=== PATIENT | female | born 1930 | race Caucasian/White ===

== ENCOUNTER 2016-09-02 16:03 | Emergency (ER) | payer MEDICARE, BC ==
[2006-11-06 12:54] VITALS: BP 122/62
[~2016-09-02] VITALS: Ht 167.6 cm; Wt 68.2 kg
[~2016-09-02 16:03] MED LIST: AMLOPIDINE PO; ASPIRIN 32325 MG/TAB PO; AVANDIA4 MG PO; AVAPRO300 M1 PO; AVAPRO300 MG PO; CALCIUM 600-D 61 TAB PO; CALCIUM WITH D1 CTB PO; CITRACAL + D CA1 TAB PO; DARVOCET-N-101 UDTAB PO; EPA/GLA1 SGL PO; FOLIC ACID 11 MG/TA1 PO; GLUCOPHAGE500 MG PO; GLUCOTROL 5M5 MG/TAB PO; GLUCOTROL XL5 MG/TAB PO; GLUCOTROL5 MG PO; IMDUR 30MG30 MG/TAB PO; JANUVIA 100MG100 MG PO; JANUVIA100 MG PO; JANUVIA50 MG PO; LASIX 40MG TABL40 MG PO; LIPITOR 80MG80 MG PO; LOPRESSOR 225 MG/TAB PO; LOPRESSOR 550 MG/TAB PO; MAXZIDE 50 MG-71 TAB PO; MULTIVITAMIN FO1 CAP PO; NITROSTAT0.4 MG/TAB SL; NORCO 325 MG-51 TAB PO; OMEGA 31000 MG PO; PLAVIX 75MG TAB75 MG PO; PRILOSEC 20MG20 MG PO; TESSALON P100 MG/CAP PO; VITAMIN C500 MG PO; VITAMIN D32000 IU PO; VITAMIN D5000 IU PO; WOMEN'S DAILY F1 TAB PO; ZYRTEC ALLERGY10 MG PO; maxide
[2016-09-02 16:31] LABS: BASO % 0.5 % (0.0-2.0); EOS # 0.1 (0.0-0.7); EOS % 1.1 % (0-4.0); GRAN % 71.1 % (42.2-75.2); LYMPH # 0.8 (1.2-3.4); LYMPH % 14.4 % (20.0-51.0); MEAN CELL VOLUME 88 fl (80.0-100.0); MEAN CORPUSCULAR HGB CONC 34 g/dl (33.0-37.0); MEAN PLATELET VOLUME 10.2 fl (7.4-10.4); MONO # 0.7 (0.1-0.6); MONO % 12.7 % (1.7-9.3); PLATELET COUNT 154 K/mm3 (130-400); RED BLOOD COUNT 3.96 M/mm3 (4.10-5.30); REDCELL DISTRIBUTION WIDTH-CV 12.8 % (11.5-14.5); WHITE BLOOD COUNT 5.6 K/mm3 (4.8-10.8)
[2016-09-02 16:32] LABS: HEMATOCRIT 34.7 % (37.0-47.0); HEMOGLOBIN 11.8 g/dl (12.5-16.0); MEAN CORPUSCULAR HEMOGLOBIN 30 pg (27.0-31.0)
[2016-09-02 16:40] LABS: ADJUSTED CALCIUM 9.9 mg/dL (8.4-10.2); ALBUMIN 4.3 gm/dL (3.5-5.0); BILIRUBIN,TOTAL 0.7 mg/dL (0.0-1.0); CALCIUM 10.1 mg/dL (8.4-10.2); CREATININE, serum 2.28 mg/dL (0.52-1.25); POTASSIUM 3.5 mmol/L (3.4-5.0)
[2016-09-02 16:44] LABS: PARTIAL THROMBOPLASTIN TIME 33.3 SECONDS (26.0-37.0)
[2016-09-02 16:51] LABS: TROPONIN-I 0.022 ng/mL (0.000-0.034)
[2016-09-02 17:30] VITALS: BP 135/57; PULSE 93
== END 2016-09-02 17:30 | disposition home or self-care (01) ==
LOC: COL.ER 16:03
PROVIDERS: Family Medicine
DX: R07.9 Chest pain, unspecified (principal); E11.22 Type 2 diabetes mellitus with diabetic chronic kidney disease; I12.0 Hypertensive chronic kidney disease with stage 5 chronic kidney disease or end stage renal disease; N18.6 End stage renal disease; Z99.2 Dependence on renal dialysis
CPT/HCPCS: J7040

== ENCOUNTER 2017-06-21 09:50 | Emergency (ER) | payer MEDICARE, BC ==
[2006-11-06 12:54] VITALS: BP 122/62
[~2017-06-21] VITALS: Ht 167.6 cm; Wt 68.2 kg
[~2017-06-21 09:50] MED LIST changes: +LASIX 80MG TABL80 MG PO; +LIPITOR 40MG TA40 MG PO; +THERAGRAN TAB1 UDTAB PO
[2017-06-21 10:10] VITALS: TEMP 98.1
[2017-06-21 11:22] LABS: BASO % 0.3 % (0.0-2.0); EOS # 0.1 (0.0-0.7); EOS % 0.9 % (0-4.0); GRAN # 7.4 (1.4-6.5); GRAN % 76.5 % (42.2-75.2); LYMPH # 1.7 (1.2-3.4); MEAN CELL VOLUME 88 fl (80.0-100.0); MEAN CORPUSCULAR HGB CONC 33 g/dl (33.0-37.0); MEAN PLATELET VOLUME 10.8 fl (7.4-10.4); MONO # 0.5 (0.1-0.6); PLATELET COUNT 168 K/mm3 (130-400); RED BLOOD COUNT 3.51 M/mm3 (4.10-5.30); WHITE BLOOD COUNT 9.7 K/mm3 (4.8-10.8)
[2017-06-21 11:23] LABS: HEMATOCRIT 30.9 % (37.0-47.0); HEMOGLOBIN 10.3 g/dl (12.5-16.0); MEAN CORPUSCULAR HEMOGLOBIN 29 pg (27.0-31.0)
[2017-06-21 11:32] LABS: ADJUSTED CALCIUM 9.4 mg/dL (8.4-10.2); BILIRUBIN,TOTAL 0.5 mg/dL (0.0-1.0); CALCIUM 9.4 mg/dL (8.4-10.2); MAGNESIUM 1.4 mg/dL (1.6-2.3); PHOSPHOROUS 3.3 mg/dL (2.5-4.5); TOTAL PROTEIN 7.2 gm/dL (6.4-8.2)
[2017-06-21 11:36] LABS: CREATININE, serum 3.95 mg/dL (0.52-1.25); POTASSIUM 2.8 mmol/L (3.4-5.0)
[2017-06-21 12:01] LABS: INFLUENZA A NEGATIVE; INFLUENZA B NEGATIVE
[2017-06-21 14:34] VITALS: BP 119/56; PULSE 81
== END 2017-06-21 14:50 | disposition home or self-care (01) ==
LOC: COL.ER 09:50
PROVIDERS: Emergency Medicine
DX: E87.6 Hypokalemia (principal); I13.2 Hypertensive heart and chronic kidney disease with heart failure and with stage 5 chronic kidney disease, or end stage renal disease; E11.22 Type 2 diabetes mellitus with diabetic chronic kidney disease; I50.9 Heart failure, unspecified; N18.6 End stage renal disease; D64.9 Anemia, unspecified; Z99.2 Dependence on renal dialysis; Z95.5 Presence of coronary angioplasty implant and graft; Z79.82 Long term (current) use of aspirin
CPT/HCPCS: J3480

== ENCOUNTER 2017-07-07 15:03 | Observation (INO) | payer MEDICARE, BC ==
[~2017-07-07] VITALS: Ht 165.1 cm; Wt 70.1 kg
[2017-07-07] MEDS ORDERED: LOPRESSOR 225 MG/TAB PO (15:16)
[2017-07-07 15:39] LABS: BASO % 0.7 % (0.0-2.0); EOS # 0.1 (0.0-0.7); EOS % 1.9 % (0-4.0); GRAN # 3.7 (1.4-6.5); LYMPH # 1.5 (1.2-3.4); LYMPH % 25.8 % (20.0-51.0); MEAN CELL VOLUME 92 fl (80.0-100.0); MEAN CORPUSCULAR HGB CONC 33 g/dl (33.0-37.0); MEAN PLATELET VOLUME 10.9 fl (7.4-10.4); MONO # 0.5 (0.1-0.6); MONO % 8.4 % (1.7-9.3); PLATELET COUNT 124 K/mm3 (130-400); RED BLOOD COUNT 3.51 M/mm3 (4.10-5.30); REDCELL DISTRIBUTION WIDTH-CV 13.8 % (11.5-14.5)
[2017-07-07 15:40] LABS: HEMATOCRIT 32.4 % (37.0-47.0); HEMOGLOBIN 10.6 g/dl (12.5-16.0); MEAN CORPUSCULAR HEMOGLOBIN 30 pg (27.0-31.0)
[2017-07-07 15:49] LABS: ALBUMIN 4.2 gm/dL (3.5-5.0); BILIRUBIN,TOTAL 0.5 mg/dL (0.0-1.0); CALCIUM 9.5 mg/dL (8.4-10.2); CREATININE, serum 1.66 mg/dL (0.52-1.25); POTASSIUM 3.5 mmol/L (3.4-5.0); PROTHROMBIN TIME 11.7 SECONDS (9.7-12.8); TOTAL PROTEIN 7.2 gm/dL (6.4-8.2)
[2017-07-07 15:51] LABS: PARTIAL THROMBOPLASTIN TIME 37.7 SECONDS (26.0-37.0)
[2017-07-07 16:01] LABS: TROPONIN-I 0.023 ng/mL (0.000-0.034)
[2017-07-07 19:20] VITALS: BP 122/43; PULSE 81; TEMP 97.8
[2017-07-07 20:21] VITALS: BP 122/43; PULSE 81; TEMP 97.8
[2017-07-07 23:19] VITALS: BP 92/38; PULSE 64; TEMP 97.3
[2017-07-08 03:41] VITALS: BP 100/39; PULSE 65; TEMP 97.4
[2017-07-08 07:46] VITALS: BP 110/46; PULSE 75; TEMP 97.8
[2017-07-08 07:48] LABS: BASO % 0.5 % (0.0-2.0); EOS # 0.2 (0.0-0.7); EOS % 2.5 % (0-4.0); GRAN # 3.3 (1.4-6.5); GRAN % 52.8 % (42.2-75.2); LYMPH % 30.9 % (20.0-51.0); MEAN CELL VOLUME 94 fl (80.0-100.0); MEAN CORPUSCULAR HGB CONC 32 g/dl (33.0-37.0); MEAN PLATELET VOLUME 11.5 fl (7.4-10.4); MONO # 0.8 (0.1-0.6); PLATELET COUNT 127 K/mm3 (130-400); RED BLOOD COUNT 3.06 M/mm3 (4.10-5.30); REDCELL DISTRIBUTION WIDTH-CV 14.2 % (11.5-14.5)
[2017-07-08 07:58] LABS: CALCIUM 9.1 mg/dL (8.4-10.2); CREATININE, serum 2.3 mg/dL (0.52-1.25); POTASSIUM 3.5 mmol/L (3.4-5.0)
[2017-07-08 08:03] LABS: HEMATOCRIT 28.8 % (37.0-47.0); HEMOGLOBIN 9.3 g/dl (12.5-16.0); MEAN CORPUSCULAR HEMOGLOBIN 30 pg (27.0-31.0)
[2017-07-08] MEDS ORDERED: ASPIRIN 81M81 MG/TA2 PO (11:12)
[2017-07-08 11:34] VITALS: BP 122/45; PULSE 78; TEMP 97.8
== END 2017-07-08 15:00 | disposition home or self-care (01) ==
LOC: COL.ER 15:03 → MEDICAL 17:07
PROVIDERS: Emergency Medicine; Internal Medicine
DX: R07.89 Other chest pain (principal); J90 Pleural effusion, not elsewhere classified; D64.9 Anemia, unspecified; I13.2 Hypertensive heart and chronic kidney disease with heart failure and with stage 5 chronic kidney disease, or end stage renal disease; E11.22 Type 2 diabetes mellitus with diabetic chronic kidney disease; N18.6 End stage renal disease; I50.9 Heart failure, unspecified; E78.5 Hyperlipidemia, unspecified; E21.3 Hyperparathyroidism, unspecified; I25.10 Atherosclerotic heart disease of native coronary artery without angina pectoris; I25.2 Old myocardial infarction; Z99.2 Dependence on renal dialysis; Z90.49 Acquired absence of other specified parts of digestive tract; Z90.5 Acquired absence of kidney
CPT/HCPCS: J1650; J1815

== ENCOUNTER 2017-07-31 08:08 | Inpatient (IN) | payer MEDICARE, BC ==
[~2017-07-31] VITALS: Ht 167.6 cm; Wt 63.5 kg
[2017-07-31] VITALS (414 sets, daily range): BP systolic 104–125; BP diastolic 47–70; PULSE 67–97; TEMP 97–97.5; O2SAT 73–100
[~2017-07-31 08:08] MED LIST changes: +ASPIRIN 81M81 MG/TA2 PO
[2017-07-31 08:48] LABS: BASO % 0.4 % (0.0-2.0); EOS # 0.1 (0.0-0.7); GRAN # 7.2 (1.4-6.5); GRAN % 79.7 % (42.2-75.2); LYMPH # 1.2 (1.2-3.4); LYMPH % 12.9 % (20.0-51.0); MEAN CELL VOLUME 94 fl (80.0-100.0); MEAN CORPUSCULAR HGB CONC 32 g/dl (33.0-37.0); MEAN PLATELET VOLUME 11.2 fl (7.4-10.4); MONO # 0.5 (0.1-0.6); MONO % 5.7 % (1.7-9.3); PLATELET COUNT 115 K/mm3 (130-400); RED BLOOD COUNT 3.62 M/mm3 (4.10-5.30); REDCELL DISTRIBUTION WIDTH-CV 14.2 % (11.5-14.5)
[2017-07-31 08:51] LABS: PROTHROMBIN TIME 11.6 SECONDS (9.7-12.8)
[2017-07-31 08:54] LABS: PARTIAL THROMBOPLASTIN TIME 30.1 SECONDS (26.0-37.0)
[2017-07-31 08:55] LABS: HEMATOCRIT 33.9 % (37.0-47.0); HEMOGLOBIN 10.9 g/dl (12.5-16.0); MEAN CORPUSCULAR HEMOGLOBIN 30 pg (27.0-31.0)
[2017-07-31 09:04] LABS: ALANINE AMINOTRANSFERASE 37 U/L (9-52); ALBUMIN 4.1 gm/dL (3.5-5.0); ALKALINE PHOSPHATASE 60 U/L (50-136); ANION GAP 12 mmol/L (7-16); AST,SGOT 30 U/L (15-37); BILIRUBIN,TOTAL 0.5 mg/dL (0.0-1.0); BLOOD UREA NITROGEN 48 mg/dL (7-17); CALCIUM 9.3 mg/dL (8.4-10.2); CARBON DIOXIDE 24 mmol/L (22-30); CHLORIDE 101 mmol/L (98-107); CREATININE, serum 3.69 mg/dL (0.52-1.25); GLUCOSE 158 mg/dL (74-106); POTASSIUM 3.7 mmol/L (3.4-5.0); SODIUM 137 mmol/L (137-145)
[2017-07-31 09:07] LABS: TROPONIN-I < 0.012 ng/mL (0.000-0.034)
[2017-08-01] VITALS (562 sets, daily range): BP systolic 110–128; BP diastolic 49–64; PULSE 67–93; TEMP 97–98; O2SAT 77–100
[2017-08-01 05:43] LABS: BASO % 0.4 % (0.0-2.0); EOS # 0.1 (0.0-0.7); EOS % 1.3 % (0-4.0); GRAN # 7.7 (1.4-6.5); GRAN % 75.4 % (42.2-75.2); LYMPH # 1.4 (1.2-3.4); LYMPH % 14.2 % (20.0-51.0); MEAN CELL VOLUME 95 fl (80.0-100.0); MEAN CORPUSCULAR HGB CONC 32 g/dl (33.0-37.0); MEAN PLATELET VOLUME 10.8 fl (7.4-10.4); MONO # 0.8 (0.1-0.6); MONO % 8.3 % (1.7-9.3); PLATELET COUNT 114 K/mm3 (130-400); RED BLOOD COUNT 3.45 M/mm3 (4.10-5.30); REDCELL DISTRIBUTION WIDTH-CV 14.6 % (11.5-14.5)
[2017-08-01 05:59] LABS: HEMATOCRIT 32.7 % (37.0-47.0); HEMOGLOBIN 10.4 g/dl (12.5-16.0); MEAN CORPUSCULAR HEMOGLOBIN 30 pg (27.0-31.0)
[2017-08-01 06:01] LABS: CALCIUM 9.3 mg/dL (8.4-10.2); CREATININE, serum 3.05 mg/dL (0.52-1.25)
[2017-08-01] MEDS ORDERED: BRILINTA90 MG PO (10:42)
[2017-08-01] MEDS ORDERED: LEVAQUIN 5500 MG/TA1 PO (10:44)
== END 2017-08-01 15:15 | disposition home or self-care (01) | DRG 246 ==
LOC: COL.ER 08:08 → SURG 09:27 → ICU 16:28
PROVIDERS: Emergency Medicine; Internal Medicine
PROC: 027034Z Dilation of Coronary Artery, One Artery with Drug-eluting Intraluminal Device, Percutaneous Approach (ICD-10-PCS; principal; 2017-07-31)
PROC: 4A023N6 Measurement of Cardiac Sampling and Pressure, Right Heart, Percutaneous Approach (ICD-10-PCS; 2017-07-31)
PROC: B2111ZZ Fluoroscopy of Multiple Coronary Arteries using Low Osmolar Contrast (ICD-10-PCS; 2017-07-31)
PROC: 5A1D70Z Performance of Urinary Filtration, Intermittent, Less than 6 Hours Per Day (ICD-10-PCS; 2017-07-31)
PROC: 5A1D70Z Performance of Urinary Filtration, Intermittent, Less than 6 Hours Per Day (ICD-10-PCS; 2017-08-01)
DX: I25.10 Atherosclerotic heart disease of native coronary artery without angina pectoris (principal); N18.6 End stage renal disease; I12.0 Hypertensive chronic kidney disease with stage 5 chronic kidney disease or end stage renal disease; E11.22 Type 2 diabetes mellitus with diabetic chronic kidney disease; D63.1 Anemia in chronic kidney disease; I25.2 Old myocardial infarction; Z66 Do not resuscitate; Z99.2 Dependence on renal dialysis; I34.0 Nonrheumatic mitral (valve) insufficiency; E87.70 Fluid overload, unspecified
CPT/HCPCS: C1725; C1760; C1769; C1874; C1887; C1894; C9600; J0583; J1940; J1956; J2250; J2270; J2405; J3010; Q9967

== ENCOUNTER 2017-09-06 07:15 | Emergency (ER) | payer MEDICARE, BC ==
[2006-11-06 12:54] VITALS: BP 122/62
[~2017-09-06] VITALS: Ht 167.6 cm; Wt 65.9 kg
[~2017-09-06 07:15] MED LIST changes: +BRILINTA90 MG PO; +LEVAQUIN 5500 MG/TA1 PO
[2017-09-06 07:36] LABS: BASO # 0.1 (0.0-0.2); BASO % 0.5 % (0.0-2.0); EOS # 0.1 (0.0-0.7); EOS % 1.3 % (0-4.0); GRAN # 6.5 (1.4-6.5); GRAN % 71.3 % (42.2-75.2); LYMPH # 1.7 (1.2-3.4); LYMPH % 18.3 % (20.0-51.0); MEAN CELL VOLUME 93 fl (80.0-100.0); MEAN CORPUSCULAR HGB CONC 32 g/dl (33.0-37.0); MEAN PLATELET VOLUME 10.8 fl (7.4-10.4); MONO # 0.8 (0.1-0.6); MONO % 8.4 % (1.7-9.3); PLATELET COUNT 130 K/mm3 (130-400); RED BLOOD COUNT 3.78 M/mm3 (4.10-5.30); REDCELL DISTRIBUTION WIDTH-CV 13.5 % (11.5-14.5)
[2017-09-06 07:37] LABS: HEMATOCRIT 35.2 % (37.0-47.0); HEMOGLOBIN 11.4 g/dl (12.5-16.0); MEAN CORPUSCULAR HEMOGLOBIN 30 pg (27.0-31.0)
[2017-09-06 07:50] LABS: ALBUMIN 4.6 gm/dL (3.5-5.0); BILIRUBIN,TOTAL 0.6 mg/dL (0.0-1.0); CALCIUM 9.3 mg/dL (8.4-10.2); CREATININE, serum 3.42 mg/dL (0.52-1.25); POTASSIUM 3.6 mmol/L (3.4-5.0); TOTAL PROTEIN 7.7 gm/dL (6.4-8.2)
[2017-09-06 08:02] LABS: TROPONIN-I 0.028 ng/mL (0.000-0.034)
[2017-09-06] MEDS ORDERED: COLACE 100100 MG/CAP PO (08:05)
[2017-09-06 09:27] LABS: COLLECTION METHOD CLEAN CATCH
[2017-09-06 09:35] LABS: PH 7 (5-8); URINE APPEARANCE Clear; URINE BACTERIA None Seen /hpf; URINE BILIRUBIN Negative (NEGATIVE); URINE BLOOD Negative (NEGATIVE); URINE COLOR Yellow; URINE GLUCOSE Negative (NEGATIVE); URINE KETONE Negative (NEGATIVE); URINE LEUKOCYTE ESTERASE 2+ (NEGATIVE); URINE NITRATE Negative (NEGATIVE); URINE PROTEIN(semi-quant) Negative (NEGATIVE); URINE RBC None Seen /hpf; URINE UROBILINOGEN Negative (NEGATIVE)
[2017-09-06 10:16] VITALS: BP 136/69; PULSE 97; TEMP 97.1
== END 2017-09-06 10:10 | disposition home or self-care (01) ==
LOC: COL.ER 07:15
PROVIDERS: Emergency Medicine
DX: E87.70 Fluid overload, unspecified (principal); R10.84 Generalized abdominal pain; R07.89 Other chest pain; E11.22 Type 2 diabetes mellitus with diabetic chronic kidney disease; I13.2 Hypertensive heart and chronic kidney disease with heart failure and with stage 5 chronic kidney disease, or end stage renal disease; N18.6 End stage renal disease; I50.9 Heart failure, unspecified; I25.10 Atherosclerotic heart disease of native coronary artery without angina pectoris; I34.0 Nonrheumatic mitral (valve) insufficiency; E78.5 Hyperlipidemia, unspecified; D64.9 Anemia, unspecified; Z99.2 Dependence on renal dialysis; Z95.5 Presence of coronary angioplasty implant and graft; Z90.49 Acquired absence of other specified parts of digestive tract; Z79.82 Long term (current) use of aspirin
CPT/HCPCS: J2405; Q9967

== ENCOUNTER 2018-06-18 15:41 | Emergency (ER) | payer MEDICARE, BC ==
[2006-11-06 12:54] VITALS: BP 122/62
[~2018-06-18] VITALS: Ht 167.6 cm; Wt 61.4 kg
[~2018-06-18 15:41] MED LIST changes: +ATIVAN 0.50.5 MG/TAB PO; +COLACE 100100 MG/CAP PO; +LEXAPRO 10MG10 MG PO; +PROTONIX 40MG T40 MG PO; +TYLENOL 500MG500 MG PO
[2018-06-18 16:26] LABS: BASO % 0.5 % (0.0-2.0); EOS # 0.1 (0.0-0.7); EOS % 2.1 % (0-4.0); GRAN # 3.7 (1.4-6.5); GRAN % 64.5 % (42.2-75.2); HEMOGLOBIN 11.4 g/dl (12.5-16.0); LYMPH # 1.4 (1.2-3.4); LYMPH % 25.1 % (20.0-51.0); MEAN CELL VOLUME 91 fl (80.0-100.0); MEAN CORPUSCULAR HEMOGLOBIN 30 pg (27.0-31.0); MEAN CORPUSCULAR HGB CONC 33 g/dl (33.0-37.0); MONO # 0.4 (0.1-0.6); MONO % 7.4 % (1.7-9.3); PLATELET COUNT 113 K/mm3 (130-400); RED BLOOD COUNT 3.79 M/mm3 (4.10-5.30); REDCELL DISTRIBUTION WIDTH-CV 14.7 % (11.5-14.5)
[2018-06-18 16:29] LABS: INR 1.1 (0.8-3.0); PROTHROMBIN TIME 12.2 SECONDS (9.7-12.8)
[2018-06-18 16:31] LABS: HEMATOCRIT 34.6 % (37.0-47.0)
[2018-06-18 16:32] LABS: PARTIAL THROMBOPLASTIN TIME 33.6 SECONDS (26.0-37.0)
[2018-06-18 16:37] LABS: ALBUMIN 3.9 gm/dL (3.5-5.0); CALCIUM 8.9 mg/dL (8.4-10.2); CREATININE, serum 2.39 mg/dL (0.52-1.25); POTASSIUM 3.7 mmol/L (3.4-5.0)
[2018-06-18] MEDS ORDERED: PROBIOTIC FORMU1 CAP PO (16:39)
[2018-06-18 16:54] LABS: TROPONIN-I 0.07 ng/mL (0.000-0.034)
[2018-06-18 18:41] LABS: TROPONIN-I 0.066 ng/mL (0.000-0.034)
[2018-06-18 19:02] VITALS: BP 126/60; PULSE 80; TEMP 97.1
== END 2018-06-18 19:10 | disposition home or self-care (01) ==
LOC: COL.ER 15:41
PROVIDERS: Family Medicine
DX: F41.9 Anxiety disorder, unspecified (principal); R07.89 Other chest pain; I50.9 Heart failure, unspecified; N18.6 End stage renal disease; Z99.2 Dependence on renal dialysis; Z79.82 Long term (current) use of aspirin; Z79.02 Long term (current) use of antithrombotics/antiplatelets
CPT/HCPCS: J2060

== ENCOUNTER 2018-06-21 08:53 | Inpatient (IN) | payer MEDICARE, BC ==
[2018-06-21] VITALS (10 sets, daily range): BP systolic 86–122; BP diastolic 47–75; PULSE 53–90; TEMP 97.1–98.1
[~2018-06-21] VITALS: Ht 167.6 cm; Wt 61.3 kg
[~2018-06-21 08:53] MED LIST changes: +PROBIOTIC FORMU1 CAP PO
[2018-06-21] MEDS ORDERED: FOLIC ACID 40400 MCG PO (09:57)
[2018-06-21] MEDS ORDERED: CALCIUM CITRATE1 TA1 PO (10:03)
[2018-06-21] MEDS ORDERED: THERAGRAN M1 UDTAB PO (10:04)
[2018-06-21] MEDS ORDERED: MASON NATURAL2000 IU PO (10:04)
[2018-06-21 10:15] LABS: BASO % 0.7 % (0.0-2.0); EOS # 0.1 (0.0-0.7); EOS % 1.5 % (0-4.0); GRAN # 3.3 (1.4-6.5); GRAN % 70.7 % (42.2-75.2); HEMOGLOBIN 10.4 g/dl (12.5-16.0); LYMPH # 0.9 (1.2-3.4); LYMPH % 18.7 % (20.0-51.0); MEAN CELL VOLUME 93 fl (80.0-100.0); MEAN CORPUSCULAR HEMOGLOBIN 30 pg (27.0-31.0); MEAN CORPUSCULAR HGB CONC 32 g/dl (33.0-37.0); MEAN PLATELET VOLUME 12.4 fl (7.4-10.4); MONO # 0.4 (0.1-0.6); PLATELET COUNT 87 K/mm3 (130-400)
[2018-06-21 10:16] LABS: HEMATOCRIT 32.4 % (37.0-47.0)
[2018-06-21 10:25] LABS: INR 1.1 (0.8-3.0); PROTHROMBIN TIME 12.2 SECONDS (9.7-12.8)
[2018-06-21 10:26] LABS: ALBUMIN 3.7 gm/dL (3.5-5.0); BILIRUBIN,TOTAL 0.6 mg/dL (0.0-1.0); CALCIUM 9.4 mg/dL (8.4-10.2); CREATININE, serum 3.31 mg/dL (0.52-1.25); POTASSIUM 4.4 mmol/L (3.4-5.0); TOTAL PROTEIN 6.5 gm/dL (6.4-8.2)
[2018-06-21 10:40] LABS: TROPONIN-I 0.465 ng/mL (0.000-0.034)
[2018-06-21] MEDS ORDERED: COLACE 100100 MG/CAP PO (14:12)
== END 2018-06-21 20:48 | disposition short-term general hospital (02) | DRG 286 ==
LOC: COL.ER 08:53 → MEDICAL 11:37
PROVIDERS: Emergency Medicine
PROC: B2111ZZ Fluoroscopy of Multiple Coronary Arteries using Low Osmolar Contrast (ICD-10-PCS; principal; 2018-06-21)
DX: T82.855A Stenosis of coronary artery stent, initial encounter (principal); N18.6 End stage renal disease; N25.81 Secondary hyperparathyroidism of renal origin; I13.2 Hypertensive heart and chronic kidney disease with heart failure and with stage 5 chronic kidney disease, or end stage renal disease; I50.22 Chronic systolic (congestive) heart failure; Z66 Do not resuscitate; I25.10 Atherosclerotic heart disease of native coronary artery without angina pectoris; E11.22 Type 2 diabetes mellitus with diabetic chronic kidney disease; I25.5 Ischemic cardiomyopathy; Z99.2 Dependence on renal dialysis; D63.1 Anemia in chronic kidney disease; Z95.5 Presence of coronary angioplasty implant and graft; E78.2 Mixed hyperlipidemia
CPT/HCPCS: J2250; J2270; J3010; J7050; Q9967

== ENCOUNTER 2018-07-25 12:54 | Emergency (ER) | payer MEDICARE, BC ==
[2006-11-06 12:54] VITALS: BP 122/62
[~2018-07-25] VITALS: Ht 167.6 cm; Wt 61.4 kg
[~2018-07-25 12:54] MED LIST changes: +CALCIUM CITRATE1 TA1 PO; +FOLIC ACID 40400 MCG PO; +MASON NATURAL2000 IU PO; +THERAGRAN M1 UDTAB PO
[2018-07-25 12:57] VITALS: TEMP 97.9
[2018-07-25] MEDS ORDERED: KAPSPARGO SPRIN25 MG PO (13:34)
[2018-07-25 13:47] LABS: BASO % 0.5 % (0.0-2.0); EOS # 0.1 (0.0-0.7); EOS % 1.6 % (0-4.0); GRAN # 3.6 (1.4-6.5); LYMPH # 1.4 (1.2-3.4); LYMPH % 25.1 % (20.0-51.0); MEAN CELL VOLUME 94 fl (80.0-100.0); MEAN CORPUSCULAR HGB CONC 32 g/dl (33.0-37.0); MEAN PLATELET VOLUME 12.9 fl (7.4-10.4); MONO # 0.6 (0.1-0.6); MONO % 9.6 % (1.7-9.3); PLATELET COUNT 72 K/mm3 (130-400); RED BLOOD COUNT 3.21 M/mm3 (4.10-5.30); REDCELL DISTRIBUTION WIDTH-CV 13.6 % (11.5-14.5)
[2018-07-25 13:48] LABS: INR 1.1 (0.8-3.0)
[2018-07-25 13:50] LABS: BILIRUBIN,TOTAL 0.7 mg/dL (0.0-1.0); CALCIUM 9.4 mg/dL (8.4-10.2); POTASSIUM 3.2 mmol/L (3.4-5.0); TOTAL PROTEIN 6.9 gm/dL (6.4-8.2)
[2018-07-25 13:54] LABS: CREATININE, serum 4.24 mg/dL (0.52-1.25)
[2018-07-25 14:04] VITALS: BP 120/62
[2018-07-25 14:07] LABS: HEMOGLOBIN 9.7 g/dl (12.5-16.0); MEAN CORPUSCULAR HEMOGLOBIN 30 pg (27.0-31.0)
[2018-07-25 14:08] LABS: HEMATOCRIT 30.1 % (37.0-47.0)
[2018-07-25] MEDS ORDERED: OMNICEF 300MG300 MG PO (14:33)
[2018-07-25] MEDS ORDERED: FLAGYL500 MG PO (14:33)
[2018-07-25 14:57] VITALS: PULSE 86
== END 2018-07-25 14:59 | disposition home or self-care (01) ==
LOC: COL.ER 12:54
PROVIDERS: Emergency Medicine
DX: K52.9 Noninfective gastroenteritis and colitis, unspecified (principal); N18.6 End stage renal disease; Z99.2 Dependence on renal dialysis; I25.10 Atherosclerotic heart disease of native coronary artery without angina pectoris; Z79.82 Long term (current) use of aspirin; Z79.02 Long term (current) use of antithrombotics/antiplatelets; Z98.890 Other specified postprocedural states
CPT/HCPCS: J7040

== ENCOUNTER 2018-08-14 12:53 | Emergency (ER) | payer MEDICARE, BC ==
[2006-11-06 12:54] VITALS: BP 122/62
[~2018-08-14] VITALS: Ht 167.6 cm; Wt 60.5 kg
[~2018-08-14 12:53] MED LIST changes: +FLAGYL500 MG PO; +KAPSPARGO SPRIN25 MG PO; +OMNICEF 300MG300 MG PO
[2018-08-14 13:01] VITALS: TEMP 97.8
[2018-08-14 13:28] LABS: BASO % 0.6 % (0.0-2.0); EOS # 0.1 (0.0-0.7); EOS % 1.1 % (0-4.0); GRAN # 3.4 (1.4-6.5); GRAN % 63.9 % (42.2-75.2); HEMOGLOBIN 11.1 g/dl (12.5-16.0); LYMPH # 1.3 (1.2-3.4); LYMPH % 24.5 % (20.0-51.0); MEAN CELL VOLUME 95 fl (80.0-100.0); MEAN CORPUSCULAR HEMOGLOBIN 30 pg (27.0-31.0); MEAN CORPUSCULAR HGB CONC 32 g/dl (33.0-37.0); MEAN PLATELET VOLUME 12.2 fl (7.4-10.4); MONO # 0.5 (0.1-0.6); MONO % 9.5 % (1.7-9.3); PLATELET COUNT 102 K/mm3 (130-400); RED BLOOD COUNT 3.71 M/mm3 (4.10-5.30); REDCELL DISTRIBUTION WIDTH-CV 14.9 % (11.5-14.5)
[2018-08-14 13:37] LABS: ALBUMIN 4.2 gm/dL (3.5-5.0); CALCIUM 9.3 mg/dL (8.4-10.2); CREATININE, serum 2.73 mg/dL (0.52-1.25); HEMATOCRIT 35.2 % (37.0-47.0); MAGNESIUM 1.6 mg/dL (1.6-2.3); POTASSIUM 3.3 mmol/L (3.4-5.0); TOTAL PROTEIN 7.3 gm/dL (6.4-8.2)
[2018-08-14 15:22] VITALS: BP 138/70; PULSE 58
== END 2018-08-14 15:24 | disposition home or self-care (01) ==
LOC: COL.ER 12:53
PROVIDERS: Emergency Medicine
DX: I50.9 Heart failure, unspecified (principal)
CPT/HCPCS: J1940

== ENCOUNTER 2018-08-17 19:26 | Emergency (ER) | payer MEDICARE, BC ==
[2006-11-06 12:54] VITALS: BP 122/62
[~2018-08-17] VITALS: Ht 167.6 cm; Wt 59.5 kg
[2018-08-17 20:04] LABS: BASO % 0.6 % (0.0-2.0); EOS # 0.1 (0.0-0.7); EOS % 2.1 % (0-4.0); GRAN # 3.1 (1.4-6.5); GRAN % 63.6 % (42.2-75.2); HEMOGLOBIN 10.6 g/dl (12.5-16.0); LYMPH # 1.2 (1.2-3.4); LYMPH % 23.8 % (20.0-51.0); MEAN CELL VOLUME 94 fl (80.0-100.0); MEAN CORPUSCULAR HEMOGLOBIN 31 pg (27.0-31.0); MEAN CORPUSCULAR HGB CONC 33 g/dl (33.0-37.0); MEAN PLATELET VOLUME 12.2 fl (7.4-10.4); MONO # 0.5 (0.1-0.6); MONO % 9.9 % (1.7-9.3); PLATELET COUNT 100 K/mm3 (130-400); RED BLOOD COUNT 3.47 M/mm3 (4.10-5.30); REDCELL DISTRIBUTION WIDTH-CV 14.7 % (11.5-14.5)
[2018-08-17 20:06] LABS: HEMATOCRIT 32.5 % (37.0-47.0); INR 1.1 (0.8-3.0); PROTHROMBIN TIME 12.4 SECONDS (9.7-12.8)
[2018-08-17 20:08] LABS: ALBUMIN 3.9 gm/dL (3.5-5.0); BILIRUBIN,TOTAL 0.7 mg/dL (0.0-1.0); CALCIUM 9.1 mg/dL (8.4-10.2); CREATININE, serum 1.78 mg/dL (0.52-1.25); POTASSIUM 3.2 mmol/L (3.4-5.0); TOTAL PROTEIN 6.8 gm/dL (6.4-8.2)
[2018-08-17 20:09] LABS: PARTIAL THROMBOPLASTIN TIME 32.5 SECONDS (26.0-37.0)
[2018-08-17 20:21] LABS: TROPONIN-I 0.038 ng/mL (0.000-0.035)
[2018-08-17 22:13] VITALS: BP 114/81; PULSE 90
== END 2018-08-17 22:13 | disposition short-term general hospital (02) ==
LOC: COL.ER 19:26
PROVIDERS: Family Medicine
DX: I20.0 Unstable angina (principal); N18.6 End stage renal disease; Z99.2 Dependence on renal dialysis; Z95.5 Presence of coronary angioplasty implant and graft; Z79.82 Long term (current) use of aspirin; Z79.02 Long term (current) use of antithrombotics/antiplatelets
CPT/HCPCS: J1644

== ENCOUNTER 2019-03-30 12:49 | Inpatient (IN) | payer MEDICARE, BC ==
[~2019-03-30] VITALS: Ht 165.1 cm; Wt 59.0 kg
[~2019-03-30 12:49] MED LIST changes: -KAPSPARGO SPRIN25 MG PO; +TOPROL XL 50MG50 MG PO
[2019-03-30 14:39] LABS: BASO % 0.3 % (0.0-2.0); EOS # 0.1 (0.0-0.7); EOS % 1.1 % (0-4.0); GRAN # 4.1 (1.4-6.5); GRAN % 65.7 % (42.2-75.2); HEMOGLOBIN 11.3 g/dl (12.5-16.0); LYMPH # 1.3 (1.2-3.4); MEAN CELL VOLUME 97 fl (80.0-100.0); MEAN CORPUSCULAR HEMOGLOBIN 30 pg (27.0-31.0); MEAN CORPUSCULAR HGB CONC 31 g/dl (33.0-37.0); MEAN PLATELET VOLUME 10.3 fl (7.4-10.4); MONO # 0.7 (0.1-0.6); MONO % 11.4 % (1.7-9.3); PLATELET COUNT 147 K/mm3 (130-400); RED BLOOD COUNT 3.79 M/mm3 (4.10-5.30)
[2019-03-30 14:42] LABS: PROTHROMBIN TIME 11.1 SECONDS (9.7-12.8)
[2019-03-30 14:44] LABS: HEMATOCRIT 36.9 % (37.0-47.0)
[2019-03-30 14:50] LABS: ALBUMIN 4.1 gm/dL (3.5-5.0); BILIRUBIN,TOTAL 0.6 mg/dL (0.0-1.0); CALCIUM 9.2 mg/dL (8.4-10.2); POTASSIUM 3.9 mmol/L (3.4-5.0); TOTAL PROTEIN 7.1 gm/dL (6.4-8.2)
[2019-03-30 14:55] LABS: CREATININE, serum 4.17 (0.52-1.25)
[2019-03-30 15:27] VITALS: BP 168/53; PULSE 64; TEMP 97.5
--- NOTE | 2019-03-30 18:00 | NUR ---
Attempting to get an accurate med-list for patient. Patient is not confused but is very anxious and getting information from her is hard to do. She starts to get anxious and states she has a hard time breathing. Offered to get her ativan but she stated she does not want any more medications at this time. She stated she is nervous about being in the hospital and needing surgery. Explained this is normal. No other changes at this time. Call light within reach.
[2019-03-30] MEDS ORDERED: CORDARONE200 MG/TAB PO (19:35)
[2019-03-30] MEDS ORDERED: PROTONIX 40MG T40 MG PO (19:37)
[2019-03-30] MEDS ORDERED: LEXAPRO 5MG5 MG PO (19:37)
[2019-03-30] MEDS ORDERED: THERAGRAN M1 UDTAB PO (19:43)
[2019-03-30] MEDS ORDERED: DIALYVITE 8001 TAB PO (19:44)
--- NOTE | 2019-03-30 19:45 | NUR ---
Patient found her current med-list. It has been updated in the computer.
[2019-03-30 20:24] VITALS: BP 123/46; PULSE 67; TEMP 98.3
[2019-03-31] VITALS (461 sets, daily range): BP systolic 123–135; BP diastolic 46–56; PULSE 59–69; TEMP 97.4–98.5; O2SAT 59–100
[2019-03-31 06:27] LABS: BASO % 0.5 % (0.0-2.0); EOS # 0.2 (0.0-0.7); EOS % 2.6 % (0-4.0); GRAN # 5.1 (1.4-6.5); GRAN % 66.6 % (42.2-75.2); HEMATOCRIT 32.9 % (37.0-47.0); HEMOGLOBIN 10.4 g/dl (12.5-16.0); LYMPH # 1.4 (1.2-3.4); LYMPH % 17.9 % (20.0-51.0); MEAN CELL VOLUME 96 fl (80.0-100.0); MEAN CORPUSCULAR HEMOGLOBIN 30 pg (27.0-31.0); MEAN CORPUSCULAR HGB CONC 32 g/dl (33.0-37.0); MEAN PLATELET VOLUME 10.8 fl (7.4-10.4); MONO # 0.9 (0.1-0.6); MONO % 12.1 % (1.7-9.3); PLATELET COUNT 145 K/mm3 (130-400); RED BLOOD COUNT 3.44 M/mm3 (4.10-5.30)
--- NOTE | 2019-03-31 06:34 | NUR ---
PT TOOK MORPHINE x1 FOR HIP PAIN. PT TOOK TYLENOL AT THE BEGINNING OF THE SHIFT. PT SIGNED SURGERY CONSENT. PT REFUSED ICE.
[2019-03-31 06:41] LABS: ALBUMIN 3.5 gm/dL (3.5-5.0); CALCIUM 8.8 mg/dL (8.4-10.2); PHOSPHOROUS 4.9 mg/dL (2.5-4.5)
[2019-03-31 06:42] LABS: CREATININE, serum 4.71 (0.52-1.25)
--- NOTE | 2019-03-31 09:50 | NUR ---
Patient is going down or surgery at this time. Consent signed and on the chart. Family is going to the waiting room. No other changes at this time.
[2019-03-31 16:20] LABS: BASO % 0.2 % (0.0-2.0); EOS # 0.2 (0.0-0.7); EOS % 1.2 % (0-4.0); GRAN # 10.4 (1.4-6.5); GRAN % 81.5 % (42.2-75.2); HEMOGLOBIN 10.4 g/dl (12.5-16.0); LYMPH # 1.1 (1.2-3.4); LYMPH % 8.4 % (20.0-51.0); MEAN CELL VOLUME 94 fl (80.0-100.0); MEAN CORPUSCULAR HEMOGLOBIN 30 pg (27.0-31.0); MEAN CORPUSCULAR HGB CONC 32 g/dl (33.0-37.0); MEAN PLATELET VOLUME 10.8 fl (7.4-10.4); MONO # 1.1 (0.1-0.6); MONO % 8.4 % (1.7-9.3); PLATELET COUNT 148 K/mm3 (130-400); RED BLOOD COUNT 3.44 M/mm3 (4.10-5.30); REDCELL DISTRIBUTION WIDTH-CV 15.8 % (11.5-14.5)
[2019-03-31 16:28] LABS: HEMATOCRIT 32.3 % (37.0-47.0)
[2019-03-31 16:29] LABS: ALBUMIN 3.7 gm/dL (3.5-5.0); CALCIUM 8.9 mg/dL (8.4-10.2); PHOSPHOROUS 4.6 mg/dL (2.5-4.5); POTASSIUM 4.1 mmol/L (3.4-5.0)
[2019-03-31 16:30] LABS: CREATININE, serum 5.13 (0.52-1.25)
--- NOTE | 2019-03-31 21:09 | NUR ---
Patient reports being a DNR and has a living will. Notified Dr. Sampson and order updated. Will have dialysis 10/ in the morning.
--- NOTE | 2019-03-31 23:45 | NUR ---
02 87-89% on RA. Placed on 2L and up to 100%. Assisted with repositioning and placed fresh ice pack to right hip. No complaints at this time.
[2019-04-01] VITALS (774 sets, daily range): BP systolic 116–170; BP diastolic 41–61; PULSE 62–81; TEMP 97.7–98.9; O2SAT 63–100
[2019-04-01 05:53] LABS: BASO % 0.2 % (0.0-2.0); EOS # 0.2 (0.0-0.7); EOS % 1.5 % (0-4.0); GRAN # 7.4 (1.4-6.5); GRAN % 74.1 % (42.2-75.2); LYMPH # 1.1 (1.2-3.4); LYMPH % 10.9 % (20.0-51.0); MEAN CELL VOLUME 95 fl (80.0-100.0); MEAN CORPUSCULAR HGB CONC 32 g/dl (33.0-37.0); MEAN PLATELET VOLUME 11.1 fl (7.4-10.4); MONO # 1.3 (0.1-0.6); MONO % 12.9 % (1.7-9.3); PLATELET COUNT 138 K/mm3 (130-400); RED BLOOD COUNT 2.83 M/mm3 (4.10-5.30); REDCELL DISTRIBUTION WIDTH-CV 15.8 % (11.5-14.5)
[2019-04-01 05:56] LABS: HEMOGLOBIN 8.6 g/dl (12.5-16.0); MEAN CORPUSCULAR HEMOGLOBIN 30 pg (27.0-31.0)
--- NOTE | 2019-04-01 06:00 | NUR ---
Assisted onto fracture mendoza to void. Ice on hip and pillow between knees. No complaints at this time.
[2019-04-01 06:06] LABS: ALBUMIN 3.4 gm/dL (3.5-5.0); CALCIUM 8.5 mg/dL (8.4-10.2); PHOSPHOROUS 6.2 mg/dL (2.5-4.5); POTASSIUM 4.2 mmol/L (3.4-5.0)
[2019-04-01 06:07] LABS: CREATININE, serum 5.44 (0.52-1.25)
--- NOTE | 2019-04-01 06:56 | NUR ---
Report received from Elise WOLF and care resumed.
--- NOTE | 2019-04-01 11:28 | NUR ---
Initial visit; Patient and family thanked Signal Operator for looking in on Naty and offering spiritual care.
--- NOTE | 2019-04-01 11:30 | NUR ---
Dr Sampson in to see pt at this time.
--- NOTE | 2019-04-01 13:26 | NUR ---
Pt taken to dialysis by bed. Report called to Petrona WOLF on surgical floor. Belongings taken to room 347. Pt to transfer to floor post dialysis.
--- NOTE | 2019-04-01 16:07 | NUR ---
LALITO putnam met with the patient and her son/[facility], Ismael to discuss a discharge plan. The patient lives in [place] with her son, Ismael and his girlfriend. The patient has a cane and a walker. The patient has had home health services in the past but does not recall the company. The patient's PCP is Dr. Rouse and patient receives medications from [facility] with no difficulties. The patient has advanced directives in the EMR. The patient and the patient's son inquired about IPR and jail facilities. LALITO putnam presented medicare.gov list of facilities. LALITO putnam presented the patient choice form. The patient's first choice is IPR at [facility] and second choice is [facility]. LALITO putnam contacted I[facility] IPR Director and then faxed referral to [facility]. instructional support services director will continue to follow to ensure a safe discharge.
--- NOTE | 2019-04-01 17:00 | NUR ---
PATIENT ADMITED INTO ROOM 347 FROM ICU. PATIENT WENT TO DIALYSIS AND THEN TRANSFERED TO FLOOR. PATIENT IS VERY TIRED, COLD, PALE AND FEEL WEAK POST DIALYSIS. DIALYSIS NURSE REPORTS TAKING OFF 1 LITER. A&O. VSS. C/O PAIN IN RIGHT HIP WITH TRANSFER BUT DENIES PAIN AT REST. RIGHT HIP DRESSING IS CD&I WITH AQUACEL. TEDS & SCD'S TO BLE. POSITIVE PEDAL PULSES. PATIENT REPORTS SHE IS TYPICALLY ANURIC FOR 24 HOURS AFTER DIALYSIS. RIGHT IJ TO INT. LEFT AV FISTULA WITH GOOD BRUIT & THRILL. NO C/O N/V. RENAL DIET. 1500CC FR. HEAD TO TOE ASSESSMENT COMPLETE. ORIENTED TO ROOM. CALL LIGHT IN REACH.
--- NOTE | 2019-04-01 19:37 | NUR ---
Sitting up in bed, alert. Denies pain. Dressing to right hip with Aquacell intact, small amount of drainage noted on upper portion of Aquacell. Patient denies any further needs at this time.
--- NOTE | 2019-04-01 23:22 | NUR ---
Lying in bed in supine position. Respirations even and unlabored. No signs or symptoms of discomfort noted.
[2019-04-02 03:39] VITALS: BP 122/41; PULSE 73; TEMP 98.1
--- NOTE | 2019-04-02 05:48 | NUR ---
Patient had uneventful evening. Denied pain. Dressing to right hip with small amount of drainage noted on the Auquacel. At this time the patient is resting in bed with eyes closed, respirations even and unlabored, no signs or symptoms of discomfort noted.
[2019-04-02 07:02] LABS: BASO % 0.2 % (0.0-2.0); EOS # 0.1 (0.0-0.7); EOS % 0.5 % (0-4.0); GRAN # 6.8 (1.4-6.5); GRAN % 73.4 % (42.2-75.2); LYMPH % 11.3 % (20.0-51.0); MEAN CELL VOLUME 96 fl (80.0-100.0); MEAN CORPUSCULAR HGB CONC 32 g/dl (33.0-37.0); MEAN PLATELET VOLUME 11.2 fl (7.4-10.4); MONO # 1.3 (0.1-0.6); MONO % 13.9 % (1.7-9.3); PLATELET COUNT 124 K/mm3 (130-400); REDCELL DISTRIBUTION WIDTH-CV 15.8 % (11.5-14.5)
--- NOTE | 2019-04-02 07:13 | NUR ---
Report provided to LUCIANO Worrell.
[2019-04-02 07:14] LABS: HEMOGLOBIN 7.9 g/dl (12.5-16.0); MEAN CORPUSCULAR HEMOGLOBIN 30 pg (27.0-31.0)
[2019-04-02 07:21] VITALS: BP 124/43; PULSE 69; TEMP 98.2
[2019-04-02 07:25] LABS: ALBUMIN 3.2 gm/dL (3.5-5.0); CALCIUM 8.7 mg/dL (8.4-10.2); CREATININE, serum 3.25 (0.52-1.25); POTASSIUM 3.9 mmol/L (3.4-5.0)
--- NOTE | 2019-04-02 09:45 | NUR ---
Patient alert and oriented, answers questions appropriately. See assessment. Right hip with aquacel in place, CDI. Neuros intact to LLE, pulses palpable, 1+ edema noted. FWB. Post op exercises encouraged. No c/o at this time.
--- NOTE | 2019-04-02 11:00 | NUR ---
Order for IJ removal received. Attempted x2 to initiate a peripheral IV, unsuccessful. Patient has restricted LUE and daily labs. Will continue with IJ until additional IV access is obtained.
[2019-04-02 11:06] VITALS: BP 116/41; PULSE 69; TEMP 98.2
--- NOTE | 2019-04-02 13:23 | NUR ---
First visit from the media professional. No needs right now.
--- NOTE | 2019-04-02 16:03 | NUR ---
MERRICK faxed updates to Tanner at [facility]. MERRICK will continue to follow.
[2019-04-02 16:25] VITALS: BP 108/71; PULSE 72; TEMP 97.9
[2019-04-02 20:00] VITALS: BP 148/54; PULSE 78; TEMP 98.3
--- NOTE | 2019-04-02 20:30 | NUR ---
Assessment completed. Aquacell dressing to right hip saturated with dark red blood. Dressing changed performed at this time. Large dark red clot noted on Aquacell dressing when removed. Edges of incision well approximated with amadeo intact. Area cleansed and new Aquacel dressing applied. Small amount of bruising noted to right hip area. Patient complains of pain in the right hip. Administered acetaminophen as ordered per patient request. Patient also explains that she is having some anxiety and would like to take her Xanax as well, administered at this time. Patient repositioned in bed and ice pack applied to right hip. Patient denies further needs or concerns at this time.
[2019-04-03] VITALS (9 sets, daily range): BP systolic 133–167; BP diastolic 41–78; PULSE 65–87; TEMP 97.7–98.4
--- NOTE | 2019-04-03 06:18 | NUR ---
Uneventful night. At beginning of shift patient was having soreness in right hip and also felt anxious. Medications for pain and anxiety administered as prescribed. Dressing to right hip was changed at beginning of shift due to the dressing saturated. Patient has been resting in room with eyes closed, respirations even and unlabored throughout the night. Voiced no further concerns or pain.
--- NOTE | 2019-04-03 07:11 | NUR ---
Report provided to LUCIANO Worrell.
[2019-04-03 07:41] LABS: BASO % 0.2 % (0.0-2.0); EOS # 0.2 (0.0-0.7); GRAN # 6.2 (1.4-6.5); GRAN % 72.5 % (42.2-75.2); LYMPH # 1.2 (1.2-3.4); LYMPH % 14.2 % (20.0-51.0); MEAN CELL VOLUME 96 fl (80.0-100.0); MEAN CORPUSCULAR HGB CONC 31 g/dl (33.0-37.0); MEAN PLATELET VOLUME 11.3 fl (7.4-10.4); MONO # 0.9 (0.1-0.6); MONO % 10.8 % (1.7-9.3); PLATELET COUNT 139 K/mm3 (130-400); RED BLOOD COUNT 2.51 M/mm3 (4.10-5.30); REDCELL DISTRIBUTION WIDTH-CV 15.5 % (11.5-14.5)
[2019-04-03 07:48] LABS: HEMATOCRIT 24.2 % (37.0-47.0); HEMOGLOBIN 7.6 g/dl (12.5-16.0); MEAN CORPUSCULAR HEMOGLOBIN 30 pg (27.0-31.0)
[2019-04-03 07:55] LABS: ALBUMIN 3.2 gm/dL (3.5-5.0); CALCIUM 8.7 mg/dL (8.4-10.2); PHOSPHOROUS 4.9 mg/dL (2.5-4.5); POTASSIUM 4.2 mmol/L (3.4-5.0)
[2019-04-03 07:56] LABS: CREATININE, serum 4.28 (0.52-1.25)
--- NOTE | 2019-04-03 09:05 | NUR ---
Tanner from [facility] reports they can accept the patient for a fci stay. SW will continue to follow.
--- NOTE | 2019-04-03 09:30 | NUR ---
Patient alert and oriented, answers questions appropriately. See assessment. RLE incision with edges well approximated, sanguinous noted to site, amadeo intact, aquacel changed. Neuros intact to RLE, pulses palpable. No c/o at this time.
--- NOTE | 2019-04-03 10:11 | NUR ---
MERRICK faxed updates to Tanner at [facility]. MERRICK will continue to follow.
--- NOTE | 2019-04-03 17:10 | NUR ---
Attempted x2 to initiate peripheral IV, unsuccessful.
--- NOTE | 2019-04-03 21:00 | NUR ---
Pt. sitting up in bed watching TV at this time. Pt. is A&OX3. TLC to rt. IJ patent. Dressing to rt. hip CDI. Pt. denies pain or other needs at this time. Call light within reach.
[2019-04-04 04:24] VITALS: BP 143/44; PULSE 72; TEMP 97.9
[2019-04-04 07:07] LABS: BASO % 0.4 % (0.0-2.0); EOS # 0.2 (0.0-0.7); EOS % 2.7 % (0-4.0); GRAN # 5.1 (1.4-6.5); GRAN % 68.8 % (42.2-75.2); LYMPH # 1.2 (1.2-3.4); LYMPH % 16.4 % (20.0-51.0); MEAN CELL VOLUME 93 fl (80.0-100.0); MEAN CORPUSCULAR HGB CONC 33 g/dl (33.0-37.0); MEAN PLATELET VOLUME 10.5 fl (7.4-10.4); MONO # 0.8 (0.1-0.6); MONO % 11.4 % (1.7-9.3); PLATELET COUNT 149 K/mm3 (130-400); RED BLOOD COUNT 3.43 M/mm3 (4.10-5.30); REDCELL DISTRIBUTION WIDTH-CV 16.3 % (11.5-14.5)
[2019-04-04 07:14] LABS: ALBUMIN 3.2 gm/dL (3.5-5.0); CALCIUM 8.9 mg/dL (8.4-10.2); CREATININE, serum 2.53 (0.52-1.25); POTASSIUM 4.1 mmol/L (3.4-5.0)
[2019-04-04 07:18] LABS: HEMOGLOBIN 10.4 g/dl (12.5-16.0); MEAN CORPUSCULAR HEMOGLOBIN 30 pg (27.0-31.0)
--- NOTE | 2019-04-04 08:15 | NUR ---
Pt is awake and A/Ox4, sitting up in the recliner finishing breakfast. Pt is up to the restroom with SBA + walker, slow and steady gait. Pt states she is having some discomfort to her right hip, rating pain a 5/10. Pt was given PRN tylenol. Right IJ triple lumen removed per order. New #22 started in right FA without complications. Fistula noted to left upper arm noted. Aquacel to right hip is CDI. Pt repositioned back in bed. Denies any other needs.
[2019-04-04 09:44] VITALS: BP 169/51; PULSE 71; TEMP 98.1
--- NOTE | 2019-04-04 09:55 | NUR ---
[facility]va with Inpatient Rehab accepts patient today. Time of transfer is unknown at this time. Cabin Agent met with Dr. Sampson' nurseAlejandrina and patient's nurse advised the above information. Worker met with the patient and advised of acceptance to [facility] today with time unknown. Worker offered to contact patient's son and advise, however patient states she will contact them. Waiting for time of transfer.
--- NOTE | 2019-04-04 10:08 | NUR ---
Relationship Advisor notified Tanner with [facility] that patient will transfer to [facility].
[2019-04-04] MEDS ORDERED: ROXICODONE 55 MG/TAB PO (11:16)
[2019-04-04] MEDS ORDERED: LEXAPRO 10MG10 MG PO (11:17)
[2019-04-04] MEDS ORDERED: ATIVAN 0.50.5 MG/TAB PO (11:17)
--- NOTE | 2019-04-04 13:30 | NUR ---
Pt was discharged to [facility]. Saline lock left in place per IPR RNs request. Report called to LUCIANO Juarez. Pt escorted to room 335 by IZABELA Lam.
[2019-04-04] MEDS ORDERED: TOPROL XL 50MG50 MG PO (14:09)
== END 2019-04-04 13:00 | DRG 469 ==
LOC: COL.ER 12:49 → SURG 14:36 → ICU 03-31 16:15 → SURG 04-01 13:49
PROVIDERS: Emergency Medicine; Orthopaedic Surgery; ADMIT Internal Medicine Nephrology
PROC: 0SRR0J9 Replacement of Right Hip Joint, Femoral Surface with Synthetic Substitute, Cemented, Open Approach (ICD-10-PCS; principal; 2019-03-31 10:00)
DX: S72.001A Fracture of unspecified part of neck of right femur, initial encounter for closed fracture (principal); N18.6 End stage renal disease; I50.22 Chronic systolic (congestive) heart failure; I13.2 Hypertensive heart and chronic kidney disease with heart failure and with stage 5 chronic kidney disease, or end stage renal disease; E44.0 Moderate protein-calorie malnutrition; E11.22 Type 2 diabetes mellitus with diabetic chronic kidney disease; Z99.2 Dependence on renal dialysis; E78.5 Hyperlipidemia, unspecified; D63.1 Anemia in chronic kidney disease; I25.10 Atherosclerotic heart disease of native coronary artery without angina pectoris; I25.2 Old myocardial infarction; W18.30XA Fall on same level, unspecified, initial encounter; Y92.009 Unspecified place in unspecified non-institutional (private) residence as the place of occurrence of the external cause; F32.9 Major depressive disorder, single episode, unspecified; M81.0 Age-related osteoporosis without current pathological fracture; Z79.82 Long term (current) use of aspirin; Z95.5 Presence of coronary angioplasty implant and graft; Z88.9 Allergy status to unspecified drugs, medicaments and biological substances
CPT/HCPCS: A9284; C1713; C1751; C1776; J0171; J0690; J1815; J2060; J2270; J2405; J2795; J3010; J7030; P9016

== ENCOUNTER 2019-04-04 09:16 | Inpatient (IN) | payer MEDICARE, BC ==
[~2019-04-04] VITALS: Ht 165.1 cm; Wt 63.4 kg
[~2019-04-04 09:16] MED LIST changes: +CORDARONE200 MG/TAB PO; +DIALYVITE 8001 TAB PO; +LEXAPRO 5MG5 MG PO
[2019-04-04] MEDS ORDERED: ROXICODONE 55 MG/TAB PO (11:16)
[2019-04-04] MEDS ORDERED: LEXAPRO 10MG10 MG PO (11:17)
[2019-04-04] MEDS ORDERED: ATIVAN 0.50.5 MG/TAB PO (11:17)
[2019-04-04] MEDS ORDERED: TOPROL XL 50MG50 MG PO (14:09)
--- NOTE | 2019-04-04 14:46 | NUR ---
Report from LUCIANO Rosario. Pt arrived to [facility] via wheelchair, TEDS and yellow gown and gripper socks in place. Dressing to old Rt IJ site CDI with gauze and tegaderm, ecchymosis present. Coccyx WNL. INT to RFA. Dr. Mendoza aware of admission. Pt with therapy.
[2019-04-04 15:24] VITALS: BP 126/64; PULSE 69; TEMP 98.2
--- NOTE | 2019-04-04 17:39 | NUR ---
Pt called for pain med, pain rated 5/10 in rt hip, pt has dyspnea with speaking, hugging pillow, eyes closed. Brought pablo and ice pack for rt hip. Will continue to monitor.
--- NOTE | 2019-04-04 19:34 | NUR ---
Report to LUCIANO Looney. Checked on pt, she was in room and states she is finished with BSC, called ELEN Rapp for assist back to bed. Pt wearing pull ups, reports pain is 2/10.
--- NOTE | 2019-04-04 20:15 | NUR ---
PT RESTING IN BED. ANXIOUS AFFECT. A&O X3. SL LABORED BREATHING. PT WEAK. LT FISTULA TO LT UPPER ARM. RT HIP AQUCELL CDI. SEE MAR FOR PAIN MED GIVEN. CALL LIGHT IN REACH. BED ALARM SET.
[2019-04-05 05:35] VITALS: BP 181/55; PULSE 71; TEMP 98.4
--- NOTE | 2019-04-05 11:48 | NUR ---
Report from LUCIANO Looney. Pt to chair for breakfast, toileted with min assist by ELECTRIC MOTOR ASSEMBLER AND TESTER, yellow gripper socks and glasses in place, INT to RFA flushes well. Cristy for pain prior to therapy this am and prior to going off unit to dialysis. Pt tori lunch.
[2019-04-05 12:49] LABS: ALBUMIN 3.2 gm/dL (3.5-5.0); CALCIUM 8.6 mg/dL (8.4-10.2); CREATININE, serum 2.7 (0.52-1.25); PHOSPHOROUS 2.7 mg/dL (2.5-4.5); POTASSIUM 4.1 mmol/L (3.4-5.0)
[2019-04-05 12:51] LABS: BASO % 0.5 % (0.0-2.0); EOS # 0.2 (0.0-0.7); EOS % 3.2 % (0-4.0); GRAN # 4.9 (1.4-6.5); GRAN % 72.8 % (42.2-75.2); HEMOGLOBIN 10.2 g/dl (12.5-16.0); LYMPH % 15.2 % (20.0-51.0); MEAN CELL VOLUME 93 fl (80.0-100.0); MEAN CORPUSCULAR HEMOGLOBIN 31 pg (27.0-31.0); MEAN CORPUSCULAR HGB CONC 33 g/dl (33.0-37.0); MEAN PLATELET VOLUME 9.9 fl (7.4-10.4); MONO # 0.5 (0.1-0.6); MONO % 7.7 % (1.7-9.3); PLATELET COUNT 158 K/mm3 (130-400); RED BLOOD COUNT 3.34 M/mm3 (4.10-5.30); REDCELL DISTRIBUTION WIDTH-CV 15.5 % (11.5-14.5)
[2019-04-05 13:32] LABS: HEMATOCRIT 31.1 % (37.0-47.0)
--- NOTE | 2019-04-05 14:10 | NUR ---
Pt went to dialysis in wheelchair via IZABELA Lam with chart with questions on lab orders after pt finished eating lunch, about 1300.
[2019-04-05 17:00] VITALS: BP 131/78; PULSE 65; TEMP 97.8
--- NOTE | 2019-04-05 17:20 | NUR ---
HD Nurse Becca returned pt to room and to recliner. This nurse settled pt in, checked BG, provided with sugar-free jello. Foot stool to rest feet on. Chair alarm on.
--- NOTE | 2019-04-05 19:36 | NUR ---
Report to LUCIANO Leary. Pt in chair with call lt in reach.
--- NOTE | 2019-04-06 02:45 | NUR ---
PATIENT DOING WELL TONIGHT. STATES PAIN IS MINIMAL. HAS BEEN UP TO BATHROOM SEVERAL TIMES, WITH X1 ASSIST AND USE OF WALKER. AQUACELL TO R HIP IS CDI. INT TO RFA IS CDI AND FLUSHES EASILY. PATIENT STATED SHE CAN FEEL HER LUE FISTULA RADIATING ALL THE WAY THROUGH/ACROSS HER CHEST. DOCTOR IS AWARE OF THIS PER REPORTS OF DIMAS WOLF. SEE ASSESSMENT. NO FURTHER NEEDS AT THIS TIME.
[2019-04-06 05:29] VITALS: BP 149/52; PULSE 70; TEMP 97.7
--- NOTE | 2019-04-06 13:11 | NUR ---
Driver License Examiner visited briefly with patient but nothing else needed at this time. Patient was tired.
--- NOTE | 2019-04-06 15:26 | NUR ---
PT HAS HAD A GOOD DAY. HAS DENIED PAIN. HAS EATEN WELL THIS DAY. INT TO RIGHT FORARM IS PATENT. PT HAS HAD VERY LITTLE TO DRINK TODAY. FISTULA IS INTACT AND + FOR BRUIE AND THRILL. RIGHT IJ AREA IS BRUISED BUT CLOSED. NO STOOLS REPORTED TODAY. PT IS ABLE TO TRANSFER EASILY FROM BED TO CHAIR. BLOOD SUGAR AT NOON 190.
--- NOTE | 2019-04-06 16:30 | NUR ---
PT SCRATCHED AT MOLE ON RIGHT BREAST. BANDAIDE PLACED TO SITE PER PT REQUEST
[2019-04-06 17:48] VITALS: BP 135/51; PULSE 63; TEMP 98.1
--- NOTE | 2019-04-07 01:34 | NUR ---
PATIENT DOING WELL TONIGHT. DID COMPLAIN OF SOME PAIN AT SHIFT CHANGE. WAS GIVEN ONE TOMI. AMBULATED TO BATHROOM SEVERAL TIMES WITH STANDBY ASSIST AND WALKER. PATIENT STILL COMPLAINING OF PULSATION THROUGHOUT HER CHEST RADIATING FROM HER FISTULA. AQUACELL TO R HIP IS CDI. NO FURTHER NEEDS AT THIS TIME WILL CONTINUE TO MONITOR.
[2019-04-07 05:00] VITALS: BP 170/60; PULSE 65; TEMP 98
--- NOTE | 2019-04-07 08:51 | NUR ---
Report from LUCIANO Leary. Pt awakened from bedresting after breakfast. Turned bed alarm on. Call lt in reach, takes pills a few at a time with thin liquids. Glasses and dentures in place. Pt refused TEDS and SCDs, c/o causing pain to feet/legs. Tylenol for upper body pains. Monitoring I&Os.
[2019-04-07 16:57] VITALS: BP 122/45; PULSE 62; TEMP 98
--- NOTE | 2019-04-07 16:58 | NUR ---
Pt still has visitors, sitting up in wheelchair with feet up on foot stool
--- NOTE | 2019-04-07 19:06 | NUR ---
Report to LUCIANO Leary. Pt states KPAD working well for pain management and sitting in the wheelchair instead of recliner. Chair alarm on. Call lt in reach. Pt filled out menus for tomorrow.
[2019-04-07 23:27] VITALS: BP 145/45; PULSE 65
--- NOTE | 2019-04-07 23:36 | NUR ---
PATIENT CALLED C/O SHORTNESS OF BREATH AND CHEST PAIN/GAS PAIN. BP 141/42, O2 99, PULSE 65, RESPIRATIONS 18. PATIENT STATES SHE FEELS LIKE SHE NEEDS TO STAND. VISIBLE TREMORS OF THE UPPER EXTREMITIES NOTED. ENCOURAGED TO TAKE SOME DEEP BREATHS. PATIENT BEGAN TO HAVE COUGH/BURPS. WALKED TO COMMODE. PATIENT VOIDED 200 OF DARK YELLOW URINE. STATED SHE FEELS LIKE SHE IS BLOATED AND NEEDS TO HAVE BM. REQUESTED A DULCOLAX SUPPOSITORY. SUPPOSITORY GIVEN. PATIENT STATES CHEST PAIN IS SUBSIDING, REFUSED NITRO TAB. PATIENTS DRESSING TO R ELBOW CHANGED WITH GUAZE AND PAPER TAPE. PATIENT VOIDED 50 ML MORE OF YELLOW URINE. AMBULATED BACK TO BED WITH WALKER. PATIENT STATES SHE FEELS BETTER. NO LONGER IN OBVIOUS DISTRESS. CALL LINCOLN WITHIN REACH, BED LOW. WILL CONTINUE TO MONITOR.
--- NOTE | 2019-04-08 01:49 | NUR ---
PATIENT STATES SHE IS FEELING BETTER. NO MORE COMPLAINTS OF SHORTNESS OF BREATH OR CHEST PAIN. HAS PASSED SOME GAS. DENIES PAIN AT THIS TIME. WILL CONTINUE TO MONITOR.
[2019-04-08 03:54] VITALS: BP 120/55; PULSE 62; TEMP 98.4
--- NOTE | 2019-04-08 08:39 | NUR ---
Assessment completed, alert/oriented, vital signs have been stable, patient report pain "everywhere" and stated she has this every morning due to her arthritis, she requsted pain medicaiton/ I gave oxy 5mg PO, heart RRR/ murmur noted, lungs CTA/ no resp.difficulty, KARL fistula +bruit/thrill, she will have dialysis this afternoon after all of ther therapies are completed, OT in room now to help her take a warm shower, patient has had breakfast and denies other needs
--- NOTE | 2019-04-08 10:58 | NUR ---
Initial visit; Patient thanked Certified Wellness Program Manager for looking in on her and offering God's blessings.
--- NOTE | 2019-04-08 11:27 | NUR ---
SW met with the patient to complete assessment on Rehab. Pt is alert & oriented. She is able to verbally communicate his needs & wants to others. Pt lives w/ her son & his family. The home is 1 story home w/ 4 steps to enter or uses the ramp. The bathroom has a tub/shower combo w/ curtain, grab bars, & hand held shower head. The toilet is ADA height. Pt reports walking mostly w/o a device but does use a 4/wheeled walker on diaylsis days. She was able doing her own ADL's, cooking, light housekeeping, laundry, shopping, drove, medication management, & finance management. Pt reports having 4/w/walker, toilet seat riser, shower chair, r/walker, w/c, & electric w/c. Pt does not receive any services. Her son has 4 outdoor cats, which he cares for. Pt's PCP is Dr. Rouse and receives her medications at [facility], & reports her insurance not helping as much this year as it did last year so her kids are looking into other options. Did talk to her about it Medicare's open enrollment coming up, which she was aware of. The pt reports having advanced directives w/ her sons, Adrian & Ismael, designated as DPOA, which there is a copy in the EMR chart. Pt wants to be able to return to home w/ her son & family. Pt's goal is to be able to move around better & have better balance. Will continue to work w/ pt & her family for support during stay & on d/c planning.
[2019-04-08 13:46] LABS: HEMOGLOBIN 10.8 g/dl (12.5-16.0); MEAN CELL VOLUME 92 fl (80.0-100.0); MEAN CORPUSCULAR HEMOGLOBIN 30 pg (27.0-31.0); MEAN CORPUSCULAR HGB CONC 33 g/dl (33.0-37.0); MEAN PLATELET VOLUME 10.1 fl (7.4-10.4); PLATELET COUNT 202 K/mm3 (130-400); RED BLOOD COUNT 3.63 M/mm3 (4.10-5.30); REDCELL DISTRIBUTION WIDTH-CV 14.7 % (11.5-14.5)
[2019-04-08 13:49] LABS: HEMATOCRIT 33.2 % (37.0-47.0)
[2019-04-08 13:57] LABS: ALBUMIN 3.6 gm/dL (3.5-5.0); CALCIUM 8.8 mg/dL (8.4-10.2); CREATININE, serum 0.71 (0.52-1.25); PHOSPHOROUS 1.1 mg/dL (2.5-4.5); POTASSIUM 3.2 mmol/L (3.4-5.0)
[2019-04-08 14:14] LABS: EOSINOPHIL 1 % (0-4); LYMPHOCYTE 23 % (20.0-51.0); NEUTROPHILS 72 % (42.0-75.2); PLATELET ESTIMATE NORMAL (NORMAL)
[2019-04-08 15:15] LABS: ALBUMIN 3.4 gm/dL (3.5-5.0); BILIRUBIN,TOTAL 0.5 mg/dL (0.0-1.0); CALCIUM 8.6 mg/dL (8.4-10.2); CREATININE, serum 1.76 (0.52-1.25); POTASSIUM 3.8 mmol/L (3.4-5.0); TOTAL PROTEIN 6.5 gm/dL (6.4-8.2)
[2019-04-08 18:19] VITALS: BP 148/37; PULSE 83; TEMP 97.6
--- NOTE | 2019-04-08 20:00 | NUR ---
Pt. sitting up in chair at this time. Pt. is A&OX3, assessment complete. INT to rt. forearm patent. Dialysis fistula to lt. upper arm noted. Pt. would like tyenol and ativan with evening meds, will give per orders. Pt. assisted with getting ready for bed, then pt. positioned for comfort in bed. Pt. denies further needs, call light within reach.
--- NOTE | 2019-04-09 07:40 | NUR ---
Patient was hyperventalating this morning following an episode where her call light was not answered this morning. This nurse along with IZABELA/Genaro were working in an isolation room did not here the call light going off. By the time we were able to assist her she was very frustrated and anxious. This nurse let patient know that she was very sorry and that she would try to make sure that it did not happen again. To prevent this patient's needs not being addressed right away this nurse gave patient her phone number. Patient was instructed to use her phone to call the nurse if her call light goes off and does not get addressed in a timely manner so that she didn't feel like her needs were not being addressed. Patient voiced understanding.
--- NOTE | 2019-04-09 11:28 | NUR ---
Spoke w/ pt about the Team Conference tomorrow. Explained to her that we would like to do a pt/family conference & wondered if either of her sons would be able to come. She requested SW call them & ask. Attempted to contact pt's son, Adrian, but was not available so left a message to call SW back. Did talk to Ismael & he wasn't sure if he would be able to attend due to his job. He asked about his brother & told him SW had called & left a message. He told SW to let him know if SW was able to reach his brother or not.
--- NOTE | 2019-04-09 11:50 | NUR ---
Patient resting in wheelchair, refusing to sit in recliner, saying not comfortable. Patient was seen by Dr. Sampson this morning. He oked patient to be able to have candies to help with dry mouth; she can have up to three cups of coffee a day if still within the fluid restrictions; patient will be bringing in her aspercream and biofreeze to apply as needed at bedside. Patient in pleasent mood this shift.
[2019-04-09 14:53] VITALS: BP 117/46; PULSE 62; TEMP 98.5
--- NOTE | 2019-04-09 21:30 | NUR ---
Patient rests in bed. Denies pain but reports skin itches forearms and applied cream. Alert and oriented x 4. SCD's on. States had snack earlier. Requested tylenol and ativan and given.
--- NOTE | 2019-04-10 03:45 | NUR ---
PATIENT HAS BEEN RESTING WITH EYES CLOSED ON HOURLY ROUNDS.
[2019-04-10 05:46] VITALS: BP 150/51; PULSE 62; TEMP 97.6
--- NOTE | 2019-04-10 10:45 | NUR ---
A Family Conference was conducted with pt & her son, Adrian. Also present was PT, OT, & Telecasting Engineer/SW. Telecasting Engineer/SW started by explaining the purpose of the meeting. The therapists explained how pt has been functioning & making good progress & that we would be making the pt Mod I in her room. Pt & son were both pleased to here this & agreed she was doing well. Informed them the d/c has been set for 04/14/19, with recommendations for home health. Pt & son seemed fine w/ this. We did discuss the fact that pt would not be able to drive until cleared by ortho. Son stated they were aware of this & thought [facility] would be able to help. They asked some questions which team answered. Pt & family are pleased with progress & care pt is receiving & feel the team is helping her meet her goals.
[2019-04-10 13:14] LABS: BASO % 0.4 % (0.0-2.0); EOS # 0.2 (0.0-0.7); EOS % 2.1 % (0-4.0); GRAN # 5.7 (1.4-6.5); GRAN % 73.1 % (42.2-75.2); LYMPH # 1.2 (1.2-3.4); LYMPH % 15.6 % (20.0-51.0); MEAN CELL VOLUME 94 fl (80.0-100.0); MEAN CORPUSCULAR HGB CONC 32 g/dl (33.0-37.0); MEAN PLATELET VOLUME 9.7 fl (7.4-10.4); MONO # 0.7 (0.1-0.6); MONO % 8.5 % (1.7-9.3); PLATELET COUNT 217 K/mm3 (130-400); REDCELL DISTRIBUTION WIDTH-CV 14.9 % (11.5-14.5)
[2019-04-10 13:17] LABS: HEMATOCRIT 30.2 % (37.0-47.0); HEMOGLOBIN 9.6 g/dl (12.5-16.0); MEAN CORPUSCULAR HEMOGLOBIN 30 pg (27.0-31.0)
[2019-04-10 13:24] LABS: ALBUMIN 3.2 gm/dL (3.5-5.0); CALCIUM 8.5 mg/dL (8.4-10.2); CREATININE, serum 3.64 (0.52-1.25); PHOSPHOROUS 4.9 mg/dL (2.5-4.5)
--- NOTE | 2019-04-10 17:45 | NUR ---
Patient attended all her therapies this AM. Patient had a few issues with her morning meal this morning and this was discussed with dietary and her diet was changed to a renal menu so that she would have better options for her diet needs per Kristen in Dietary. She ate her lunch in her room and then was transported to Dialysis Room #17 at 12:45 PM today and then returned to her room by 16:30 this afternoon. Patient is currently eating her supper sitting in her recliner. Patient was made independent in her room with her walker this morning and patient has been ambulating well in her room. Will continue to monitor.
[2019-04-10 17:53] VITALS: BP 122/53; PULSE 60; TEMP 97.9
--- NOTE | 2019-04-10 20:09 | NUR ---
Patient has hemorrhoids and did have some small bleeding rectally following bowel movements this morning. This was reported to Dr. Mendoza. No changes or new orders at this time. New order was given for Anusol suppository if needed for hemorrhoid pain. Will continue to monitor. Reported off to night nurse.
--- NOTE | 2019-04-10 20:30 | NUR ---
Ativan and tylenol given per patient request with HS meds. Voices anxiousness about discharge.
--- NOTE | 2019-04-10 20:34 | NUR ---
Patient sits up in recliner. HS meds all reviewed and taken 1 to 3 at a time. Accu check 230 and SSI reviewed and given along with snack of radha crackers. Room arranged for safety and items placed within reach. Is modified independent in room with walker but instructed to call for needs.
--- NOTE | 2019-04-11 02:51 | NUR ---
Patient has been resting with eyes closed. Respirations with ease.
[2019-04-11 05:04] VITALS: BP 141/44; PULSE 61; TEMP 98.2
--- NOTE | 2019-04-11 05:43 | NUR ---
AWAKENED FOR AM MED. STATES SHE SLEPT WELL AND DIDN'T GET UP THROUGH THE NIGHT. DENIES PAIN AT THIS TIME.
--- NOTE | 2019-04-11 07:11 | NUR ---
bedside shift report received from LUCIANO Hu
--- NOTE | 2019-04-11 08:21 | NUR ---
ambulating in donovan with physical therapy
--- NOTE | 2019-04-11 09:32 | NUR ---
Visited w/ pt. Inquired about her having any questions/concerns from the team conference that was reviewed with her. She stated she did not. She did say that her son, Adrian, had mentioned about her using the [facility] for dialysis but doesn't know if anything is set up. Told her SW would call Ismael, her other son, & talk to him. Provided pt w/ a Medicare.gov list of home health agencies. She told SW that she thought she had just [facility] before but wasn't sure. Told her SW could call to see if she had been on service before, which she was fine with. Contacted [facility] & spoke w/ Razia. Referral made for conitnued PT/OT/nursing. She stated she would get back w/ SW on acceptance.
--- NOTE | 2019-04-11 09:50 | NUR ---
sitting in WC waiting for therapy, full assessment completed, see interventions for further info
--- NOTE | 2019-04-11 10:58 | NUR ---
Contacted pt's son, Ismael. Provided him w/ an update from the team conference & Family Conference. He was glad to hear she was doing well. Informed him of d/c for 04/14/19. Did tell him the biggest concern his mother has is transportation to dialysis. He said he would talk w/ his brother but they would get it figured out. He did ask about therapy at d/c & told him the team recommended home health PT/OT. Explained MERRICK has been talking to his mother about it & she wanted to use [facility]. He thanked MERRICK for the update.
--- NOTE | 2019-04-11 12:15 | NUR ---
up in WC eating lunch, c/o having difficulty chewing and swallowing the food as it is tough
--- NOTE | 2019-04-11 13:37 | NUR ---
out of room with therapy
--- NOTE | 2019-04-11 15:20 | NUR ---
aquacel dressing removed, incision with amadeo CD&I, covered wtih new aquacel, tolerated well
--- NOTE | 2019-04-11 17:37 | NUR ---
vital signs recheck and Temp 102.9 and P 115, BP 144/70, is again covered with blanket and encouraged to leave blanket off, c/o pain and medicated with percocet 5mg 1 tab and with the percocet gave tylenol 325mg, is c/o she just doesn't feel good, scheduled IV antibiotic started, Dr Chua notified, will continue to monitor, also encouraged her to use her incentive spirometer and when pain pill has started working to get up and ambulate in the donovan, verbalizes understanding, family at bedside
[2019-04-11 18:29] VITALS: BP 145/43; PULSE 66; TEMP 97.9
--- NOTE | 2019-04-11 19:03 | NUR ---
bedside shift report given to LUCIANO Chapa
--- NOTE | 2019-04-12 01:42 | NUR ---
PATIENT DOING WELL TONIGHT. C/O PAIN TO R LEG, SOME SWELLING TO RLE NOTED. PATIENT GIVEN PRN TYLENOLS. PATIENT AMBULATING WELL INDEPENDENTLY IN ROOM. REQUESTED ATIVAN TO HELP SLEEP. TOOK SCHEDULED MEDS WITHOUT ISSUE. REQUESTED SETH HOSE BE REMOVED FOR A WHILE, LEG ELEVATED. NO FURTHER NEEDS AT THIS TIME. WILL CONTINUE TO MONITOR.
[2019-04-12 05:13] VITALS: BP 149/38; PULSE 63; TEMP 98
--- NOTE | 2019-04-12 11:11 | NUR ---
Visited w/ pt about d/c for 04/14/19. Informed her that [facility] as agreed to accept her & will be in contact w/ her. Reviewed that she had her own r/walker & she informed SW that she did not. Inquired where she would like to get the walker from & she stated [place] [facility]. Reviewed the Medicare Rights form, which she stated she understood & signed form.
--- NOTE | 2019-04-12 11:23 | NUR ---
Contacted [place] [facility] & spoke w/ Aisha. Equipment request was made for a walker w/ wheels. Faxed referral information.
--- NOTE | 2019-04-12 13:02 | NUR ---
Report from LUCIANO Leary. Pt tori mod I in room with walker. Scheduled f/u appts. Pt has liquid stools and poor appetite. Dialysis nurse called for pt, pt toileting again prior to W[employer] MECHANIC escourting pt to HD. Chart with note for Dr. Sampson and BP cuff sent with today's weight.
[2019-04-12 14:26] LABS: BASO % 0.3 % (0.0-2.0); EOS # 0.1 (0.0-0.7); EOS % 1.6 % (0-4.0); GRAN # 4.8 (1.4-6.5); GRAN % 74.8 % (42.2-75.2); HEMATOCRIT 28.6 % (37.0-47.0); HEMOGLOBIN 9.6 g/dl (12.5-16.0); LYMPH # 1.1 (1.2-3.4); LYMPH % 17.1 % (20.0-51.0); MEAN CELL VOLUME 91 fl (80.0-100.0); MEAN CORPUSCULAR HEMOGLOBIN 30 pg (27.0-31.0); MEAN CORPUSCULAR HGB CONC 34 g/dl (33.0-37.0); MONO # 0.4 (0.1-0.6); MONO % 5.9 % (1.7-9.3); PLATELET COUNT 233 K/mm3 (130-400); RED BLOOD COUNT 3.16 M/mm3 (4.10-5.30); REDCELL DISTRIBUTION WIDTH-CV 14.7 % (11.5-14.5)
[2019-04-12 14:36] LABS: ALBUMIN 3.3 gm/dL (3.5-5.0); CALCIUM 8.9 mg/dL (8.4-10.2); CREATININE, serum 1.97 (0.52-1.25); PHOSPHOROUS 2.3 mg/dL (2.5-4.5); POTASSIUM 3.5 mmol/L (3.4-5.0)
--- NOTE | 2019-04-12 16:45 | NUR ---
DIANE Hudson RN returned pt to room.
[2019-04-12 17:33] VITALS: BP 159/44; PULSE 74; TEMP 98.2
--- NOTE | 2019-04-12 20:30 | NUR ---
PT RESTING IN BED. MOD I IN ROOM W/WALKER. SEE MAR FOR PAIN MED GIVEN. ATIVAN GIVEN PER REQUEST. NO FURTHER LIQ STOOLS THIS EVENING. PT AWARE THE NEED FOR STOOL SAMPLE. STEADY GAIT WITH WALKER. INSTRUCTED PT IF AFTER TAKING ANTIVAN TO CALL FOR ASSIST IF NEEDED. PT AGREED. CALL LIGHT IN REACH.
--- NOTE | 2019-04-13 02:53 | NUR ---
PT SLEEPING. NO DISTRESS.
[2019-04-13 05:41] VITALS: BP 147/45; PULSE 75; TEMP 98.1
--- NOTE | 2019-04-13 06:36 | NUR ---
NO BM THIS SHIFT. STILL NEED SAMPLE FOR C-DIFF.
--- NOTE | 2019-04-13 07:12 | NUR ---
Report from LUCIANO Loonye. Pt tori mod I in rm w/ FWW. Declines tylenol this morning, provided coffee per request, denies any further needs for breakfast. Pt verbalizes understanding to call nurse after having BM to send sample to lab.
--- NOTE | 2019-04-13 08:05 | NUR ---
Called [facility] after hours "emergency" and spoke with answering service staff that pt needs walker delivered to hospital prior to her discharing home tomorrow. Their staff took nurse's number and will follow up.
--- NOTE | 2019-04-13 13:06 | NUR ---
No answer from nephrology nurse, Tamy, so contacted Dr. Sampson about reviewing meds prior to discharge. He is aware.
[2019-04-13 15:26] VITALS: BP 131/42; PULSE 61; TEMP 97.8
--- NOTE | 2019-04-13 16:25 | NUR ---
Pt's c. diff negative, obtained orders for prn imodium, given once. Pt voided small amounts of urine, concentrated yellow in hat with stool. Tylenol prior to attending group therapy. R hip aquacel intact without shadowing, TEDS to BLE with gripper socks in place.
--- NOTE | 2019-04-13 20:30 | NUR ---
PT RESTING IN RECLINER. DISCUSSING DISCHARGE TO HOME TOMORROW AND HER FEARS. PT HAS GOOD ACTION PLAN FOR SAFETY AT HOME. SEE MAR FOR TYLENOL/ ATIVAN GIVEN. MOD I IN ROOM. NO NEEDS AT THIS TIME.
[2019-04-14 06:24] VITALS: BP 154/48; PULSE 66; TEMP 98.2
[2019-04-14] MEDS ORDERED: TOPROL XL 25MG25 MG PO (10:25)
--- NOTE | 2019-04-14 10:46 | NUR ---
Pt sees Dr. Olsen, guitar teacher at least once a week at dialysis. Pt declines waiting for Dr. Sampson prior to discharge and feels no concerns about nephrology. Dr. Mendoza also agrees with this plan. Pt aware that she will need to follow up with Dr. Olsen.
--- NOTE | 2019-04-14 11:32 | NUR ---
Faxed discharge summary to [facility] , received "OK" fax receipt.
--- NOTE | 2019-04-14 14:01 | NUR ---
Reviewed discharge instructions, awaiting pt's walker to be delivered. Son here for providing ride home.
--- NOTE | 2019-04-14 14:45 | NUR ---
Pt called after her new walker was delivered. Had printed pt health summary, discharge summary, and home med list and reviewed with pt. Stressed importance of follow up appointments. Reviewed med list, no new prescriptions. Belongings gathered by pt including upper and lower dentures, glasses, clothes, shoes, adaptive equipment and walker. Pt and son Ismael denied any questions. Pt transported via wheelchair by IZABELA Lam for ride home with son.
--- NOTE | 2019-04-16 13:30 | NUR ---
Discharge QIM scores were reviewed by the team. Code of 3 chosen for rolling left to right as this was determined by team discussion to be the most usual performance for this patient during the assessment period (pt needed Marc to roll to the right as that was her injured side).
== END 2019-04-14 14:45 | disposition home health service (06) | DRG 559 ==
PROVIDERS: Internal Medicine Nephrology; ADMIT Internal Medicine
PROC: 5A1D70Z Performance of Urinary Filtration, Intermittent, Less than 6 Hours Per Day (ICD-10-PCS; principal; 2019-04-05)
DX: S72.001D Fracture of unspecified part of neck of right femur, subsequent encounter for closed fracture with routine healing (principal); N18.6 End stage renal disease; I12.0 Hypertensive chronic kidney disease with stage 5 chronic kidney disease or end stage renal disease; E46 Unspecified protein-calorie malnutrition; W18.30XD Fall on same level, unspecified, subsequent encounter; E11.22 Type 2 diabetes mellitus with diabetic chronic kidney disease; E78.5 Hyperlipidemia, unspecified; D63.1 Anemia in chronic kidney disease; F41.9 Anxiety disorder, unspecified; I25.10 Atherosclerotic heart disease of native coronary artery without angina pectoris; I25.2 Old myocardial infarction; Z79.891 Long term (current) use of opiate analgesic; Z79.82 Long term (current) use of aspirin; Z99.2 Dependence on renal dialysis; Z95.5 Presence of coronary angioplasty implant and graft; Z90.5 Acquired absence of kidney; Z88.0 Allergy status to penicillin; Z88.9 Allergy status to unspecified drugs, medicaments and biological substances
CPT/HCPCS: 99222-AI; 99231-AI; 99232-AI; 99239; J1815; J7030

== ENCOUNTER 2019-11-17 20:12 | Emergency (ER) | payer MEDICARE, BC ==
[2006-11-06 12:54] VITALS: BP 122/62
[~2019-11-17] VITALS: Ht 165.1 cm; Wt 63.6 kg
[~2019-11-17 20:12] MED LIST changes: +ROXICODONE 55 MG/TAB PO; +TOPROL XL 25MG25 MG PO
[2019-11-18 01:10] VITALS: BP 132/70; PULSE 68; TEMP 98
== END 2019-11-17 23:00 | disposition home or self-care (01) ==
LOC: COL.ER 20:12
DX: S82.842A Displaced bimalleolar fracture of left lower leg, initial encounter for closed fracture (principal); S05.11XA Contusion of eyeball and orbital tissues, right eye, initial encounter; S50.11XA Contusion of right forearm, initial encounter; S80.11XA Contusion of right lower leg, initial encounter; I25.10 Atherosclerotic heart disease of native coronary artery without angina pectoris; I12.9 Hypertensive chronic kidney disease with stage 1 through stage 4 chronic kidney disease, or unspecified chronic kidney disease; E11.22 Type 2 diabetes mellitus with diabetic chronic kidney disease; N18.9 Chronic kidney disease, unspecified; I25.2 Old myocardial infarction; Z79.82 Long term (current) use of aspirin; Z79.02 Long term (current) use of antithrombotics/antiplatelets; Z79.84 Long term (current) use of oral hypoglycemic drugs; Z99.2 Dependence on renal dialysis; Z85.528 Personal history of other malignant neoplasm of kidney; W01.190A Fall on same level from slipping, tripping and stumbling with subsequent striking against furniture, initial encounter; Y92.009 Unspecified place in unspecified non-institutional (private) residence as the place of occurrence of the external cause
CPT/HCPCS: Q4045

== ENCOUNTER → 2019-12-11 | Outpatient (CLI) | payer MEDICARE, BC ==
[2019-12-11 13:40] LABS: BASO % 0.5 % (0.0-2.0); EOS # 0.1 (0.0-0.7); GRAN % 67.5 % (42.2-75.2); LYMPH # 1.2 (1.2-3.4); LYMPH % 20.4 % (20.0-51.0); MEAN CELL VOLUME 99 fl (80.0-100.0); MEAN CORPUSCULAR HGB CONC 32 g/dl (33.0-37.0); MEAN PLATELET VOLUME 10.5 fl (7.4-10.4); MONO # 0.6 (0.1-0.6); MONO % 9.4 % (1.7-9.3); PLATELET COUNT 187 K/mm3 (130-400); REDCELL DISTRIBUTION WIDTH-CV 15.3 % (11.5-14.5)
[2019-12-11 13:45] LABS: HEMATOCRIT 29.6 % (37.0-47.0); HEMOGLOBIN 9.6 g/dl (12.5-16.0); MEAN CORPUSCULAR HEMOGLOBIN 32 pg (27.0-31.0)
[2019-12-11 13:47] LABS: ALBUMIN 3.6 gm/dL (3.5-5.0); BILIRUBIN,TOTAL 0.5 mg/dL (0.0-1.0); CALCIUM 9.1 mg/dL (8.4-10.2); CREATININE, serum 5.28 (0.52-1.25); POTASSIUM 4.3 mmol/L (3.4-5.0); TOTAL PROTEIN 6.5 gm/dL (6.4-8.2)
[2019-12-11 13:51] LABS: PROTHROMBIN TIME 11.1 SECONDS (9.7-12.8)
== END ==
LOC: COL.RAD 09:47
PROVIDERS: Internal Medicine
DX: Z01.818 Encounter for other preprocedural examination (principal); Z51.81 Encounter for therapeutic drug level monitoring; S82.842A Displaced bimalleolar fracture of left lower leg, initial encounter for closed fracture

== ENCOUNTER 2020-03-30 13:21 | Inpatient (IN) | payer MEDICARE, BC ==
[2020-03-30] VITALS (14 sets, daily range): BP systolic 122–178; BP diastolic 46–77; PULSE 63–70; TEMP 97.5
[~2020-03-30] VITALS: Ht 167.6 cm; Wt 71.3 kg
--- NOTE | 2020-03-30 14:31 | NUR ---
received report from [place]. report from ems reported 2mg morphine given and pt still having active chest pain, Dr. Montenegro was called and ordered stat troponin and cardiology consult when pt arrived. consult called to Dr. Bajwa, he ordered stat EKG, recieved call from biological lab technician that pt would be taken down there first. pt arrived to room via ems and was redirected to biological lab technician.
--- NOTE | 2020-03-30 15:43 | NUR ---
PT TRANSFERRED TO BED IN ROOM, SET UP ON VITALS CART FOR POST OPS, PT REPORTS NO PAIN AT THIS TIME, PT AOX4, R RADIAL SITE ASSESSED WITH OPERATIONS SUPPORT ANALYST RN, IMAN. PT BELONGINGS IN ROOM, NO OTHER NEEDS.
[2020-03-30] MEDS ORDERED: FOLIC ACID0.4 MG PO (16:08)
[2020-03-30] MEDS ORDERED: THERAGRAN TAB1 UDTAB PO (16:13)
--- NOTE | 2020-03-30 16:48 | NUR ---
PT ANSWERED YES TO A FEW SUICIDE ASSESSMENT QUESTIONS, PRISCILLA NOTIFED OF THIS ALONG WITH HIGH BP'S. HYDRALAZINE PRN ORDER GIVEN VORB.
--- NOTE | 2020-03-30 17:16 | NUR ---
prn hydralazine given.
--- NOTE | 2020-03-30 17:28 | NUR ---
PT PLEASANT AOX4, DENIES CHEST PAIN AT THIS TIME, PT GIVEN PUDDING AND WATER, GIVEN HYDRALAZINE, PT REPORTS SHE HAS HAD SUICIDAL THOUGHTS IN THE PAST MONTH BUT "I WANT TO GET BETTER". PT REQUESTED TO BE A DNR, FISTULA BULGING AND THRILL/BRUIT PRESENT. RRADIAL SITE STILL INTACT WITH BAND FILLED TO 17ML OF AIR, NO OTHER NEEDS.
--- NOTE | 2020-03-30 19:42 | NUR ---
Troponin 0.038. Down from last one of 0.06
--- NOTE | 2020-03-30 20:10 | NUR ---
Patient assessed at this time. Alert and oriented x 4, and able to make needs known. Denies having pain and discomfort at this time. Peripheral INT to right AC flushed. Site without redness, warmth, swelling, and pain. AV fistula to left arm with positive bruit and thrill. Band to right radial heart cath site continues to be in place. Released more air slowly to make sure no bleeding occurs. Denies pain and discomfort to area. Patient had scab to right shoulder and picked at it. Dressing placed to area due to bleeding. Patient has bruising to BUE and BLE in various stages of healing. Patient has generalized edema to face, trunk, BUE, and BLE. States that she has not been to dialysis for a while and is looking forward to going tomorrow. Denies SOB and dyspnea. LS CTA in upper lobes, diminished in lower. Respirations even and unlabored. HRR. Telemetry in place: paced. Capillary refill less than 3 seconds. Non-tenting skin turgor. BSAx4. Abdomen soft and non-tender. Dressing to incision on left ankle is CDI. Does not want dressing to be removed to look at until tomorrow. Voices no further questions, needs, or concerns at this time. Resting in bed watching TV. Call light within reach.
--- NOTE | 2020-03-30 22:25 | NUR ---
All air from right radial band to heart cath site has been released. Band taken off. No bleeding noted to area. Covered with bandaid and reinforced as patient requested with coban. Arm board put back in place to protect site. Denies having any pain and discomfort. Voices no questions, needs, or concerns at this time. Resting in bed with call light within reach.
[2020-03-31] VITALS: BP 135/46; PULSE 62; TEMP 97.7
[2020-03-31 04:00] VITALS: BP 127/46; PULSE 64; TEMP 97.5
--- NOTE | 2020-03-31 05:04 | NUR ---
Patient has been resting in bed. Voices no questions, needs, or concerns at this time. One assist with tranferring to bedside commode. Dressing to right radial heart cath site is CDI. Patient to have dialysis today. Resting in bed with call light within reach.
[2020-03-31 07:14] VITALS: BP 144/48; PULSE 59; TEMP 97.8
--- NOTE | 2020-03-31 08:30 | NUR ---
PT PLEASANT, AOX4, EDUCATED HER DIALYSIS WOULD NOT BE UNTIL THE AFTERNOON, PT STATES SHE IS READY FOR DIALYSIS, PT LEGS EDEMETOUS, L HAND EDEMETOUS WITH ECCHYMOSIS PRESENT, R RADIAL SITE COVERED WITH BANDAID, ECCHYMOSIS AROUND SITE, PT IV SHOWS NO REDNESS DRAINAGE EDEMA, PT LUNGS CTA, PT ATE ALL OF HER BREAKFAST, USES WALKER TO AMBULATE, VITALS REVIEWED, MEDICATION SGIVEN, ASSESSMENT PERFORMED, DRESSING CHANGED ON L ANKLE, NO OTHER NEEDS AT THIS TIME.
[2020-03-31 09:07] LABS: BASO # 0.1 (0.0-0.2); BASO % 0.8 % (0.0-2.0); EOS # 0.2 (0.0-0.7); EOS % 2.7 % (0-4.0); GRAN % 67.3 % (42.2-75.2); HEMATOCRIT 26.7 % (37.0-47.0); HEMOGLOBIN 8.7 g/dl (12.5-16.0); LYMPH # 1.6 (1.2-3.4); LYMPH % 21.5 % (20.0-51.0); MEAN CELL VOLUME 95 fl (80.0-100.0); MEAN CORPUSCULAR HEMOGLOBIN 31 pg (27.0-31.0); MEAN CORPUSCULAR HGB CONC 33 g/dl (33.0-37.0); MEAN PLATELET VOLUME 10.7 fl (7.4-10.4); MONO # 0.5 (0.1-0.6); MONO % 7.3 % (1.7-9.3); PLATELET COUNT 160 K/mm3 (130-400); RED BLOOD COUNT 2.82 M/mm3 (4.10-5.30)
[2020-03-31 09:19] LABS: ALBUMIN 3.7 gm/dL (3.5-5.0); CALCIUM 8.6 mg/dL (8.4-10.2); CREATININE, serum 5.88 (0.52-1.25); POTASSIUM 4.6 mmol/L (3.4-5.0)
--- NOTE | 2020-03-31 09:48 | NUR ---
Initial visit; Patient thanked Technical Publications Manager for stopping and wishing her well and God's blessings.
[2020-03-31 11:16] VITALS: BP 124/43; PULSE 97; TEMP 98.4
--- NOTE | 2020-03-31 11:40 | NUR ---
PT HAS LOW DIASTOLIC OF 37 AND THEN 43. PRISCILLA AWARE AND SAID TO GO AHEAD AND GIVE LASIX.
--- NOTE | 2020-03-31 12:50 | NUR ---
PT TAKEN TO DIALYSIS VIA WHEELCHAIR
--- NOTE | 2020-03-31 14:43 | NUR ---
pt updated on care and echocardiogram result.
--- NOTE | 2020-03-31 16:46 | NUR ---
Maureen, at [facility], notified MERRICK that the patient has home health services through them for PT. The patient was in dialysis. MERRICK contacted the patient's son, Vadim (ph#[phone]), to complete intake. The patient lives in [place] with her other son, Ismael (ph#[phone]). Vadim reports that the patient is independent with ADLs and has a cane, walker, and wheelchair. He confirms that she is receiving home health through [facility]. The patient's PCP is Dr. Arun Rouse and she receives her medications at [facility]. The patient's advance directives are in EMR. Her DPOA-HC is her sons: Vadim and Ismael. Vadim reports that the plan would be for the patient to return back home with his brother and resume home health services through [facility] . MERRICK faxed updates to [facility].
--- NOTE | 2020-03-31 16:52 | NUR ---
pt returned from dialysis. LUCIANO Hudson reported pt having chest tightness and throat tightness during the last hour. this has since resolved.
[2020-03-31 17:04] VITALS: BP 131/51; PULSE 60; TEMP 97.7
--- NOTE | 2020-03-31 17:21 | NUR ---
PT PLEASANT, AOX4, REPORTED CHEST PAIN IN DIALYSIS BUT IT HAS RESOLVED, PT STARTED ON PHOSLO, PT REPORTS BEING TIRED BUT UNABLE TO REST. PT BP HAVE BEEN CONTROLLED WITH SCHEDULED MEDICATION. PT REPORTS HEADACHE HAS RESOLVED. NO OTHER NEEDS AT THIS TIME.
--- NOTE | 2020-03-31 17:28 | NUR ---
PT DAUGHTER, UVALDO, UPDATED.
--- NOTE | 2020-03-31 19:15 | NUR ---
Patient assessed at this time. Alert and oriented x 4, and able to make needs known. Denies having pain and discomfort at this time. Peripheral INT to right AC. AV fistula to left upper arm with dressings CDI. Bandaid to right radial heart cath site is CDI. Denies having SOB and dyspnea. LS CTA. Respirations even and unlabored. HRR. Telemetry on: paced. Capillary refill less than 3 seconds. Non-tenting skin turgor. BSAx4. Abdomen soft and non-tender. Non-pitting edema to LLE. Dressing to LLE CDI. Bruising in various stages of healing to BUE and BLE. Voices no questions, needs, or concerns at this time. Resting in bed with call light within reach.
[2020-03-31 19:16] VITALS: BP 138/49; PULSE 63; TEMP 97.7
[2020-04-01] VITALS (16 sets, daily range): BP systolic 105–157; BP diastolic 43–65; PULSE 59–68; TEMP 97.1–97.8
--- NOTE | 2020-04-01 05:13 | NUR ---
Patient has been resting in bed with call light within reach. Voices no questions, needs, or concerns. Has denied having pain and discomfort, as well as SOB when asked.
--- NOTE | 2020-04-01 06:35 | NUR ---
Patient called at approximately 0550 requesting tylenol for pain. Upon entering room to give tylenol, patient sitting up on side of bed moaning. Stated she is having pain to left shoulder/back/chest. BP 137/65, pulse 70, SPO2 99% RA, put on oxygen for comfort. Given APAP while calling Dr. Sampson at 0600 for update. New order for Nitro SL. Given first dose at 0605. BP at 0610 113/46, continued to have some pain, but pain went from at 10 to a 4. Given 2nd dose at 0610. BP at 0620 105/51, and pain was resolved. Stayed with patient. Patient assisted to recliner as requested. Voices no further questions, needs, or concerns at this time. Chest pain continues to be resolved at this time.
--- NOTE | 2020-04-01 06:47 | NUR ---
Patient assisted back to bed at this time as requested. Took oxygen off as requested by patient. Denies chest pain and discomfort at this time.
[2020-04-01 08:03] LABS: BASO % 0.7 % (0.0-2.0); EOS # 0.2 (0.0-0.7); EOS % 2.7 % (0-4.0); GRAN # 3.9 (1.4-6.5); GRAN % 69.8 % (42.2-75.2); LYMPH % 16.8 % (20.0-51.0); MEAN CELL VOLUME 99 fl (80.0-100.0); MEAN CORPUSCULAR HGB CONC 31 g/dl (33.0-37.0); MEAN PLATELET VOLUME 10.9 fl (7.4-10.4); MONO # 0.6 (0.1-0.6); MONO % 9.8 % (1.7-9.3); PLATELET COUNT 133 K/mm3 (130-400); RED BLOOD COUNT 2.43 M/mm3 (4.10-5.30); REDCELL DISTRIBUTION WIDTH-CV 16.3 % (11.5-14.5)
[2020-04-01 08:04] LABS: HEMOGLOBIN 7.5 g/dl (12.5-16.0); MEAN CORPUSCULAR HEMOGLOBIN 31 pg (27.0-31.0)
[2020-04-01 08:13] LABS: ALBUMIN 3.5 gm/dL (3.5-5.0); CALCIUM 9.1 mg/dL (8.4-10.2); CREATININE, serum 4.21 (0.52-1.25); PHOSPHOROUS 5.2 mg/dL (2.5-4.5); POTASSIUM 4.3 mmol/L (3.4-5.0)
--- NOTE | 2020-04-01 10:44 | NUR ---
7:00 - pt resting in recliner, Assessment as charted. Telemetry on. BLE non-pitting edema, Lt ankle drsg. CDI CMS ck to BLE WNL. Rt AC intact without redness. Pt denies c/o pain at this time.
--- NOTE | 2020-04-01 16:45 | NUR ---
MERRICK met with the patient to review d/c plan. The patient confirms that she lives with her son, Ismael. She states that she would prefer to have him contacted, if needed. She states that she is ready to get home and would like to continue [facility] upon discharge. She states that she normally drives to dialysis, but may need transportation to dialysis for awhile when she gets home. She states that her son, Vadim, should be able to do it. She statse that Vadim and Ismael planned on talking to other family, neighbors, and friends to see if they could help. MERRICK informed her of [employer]. The patient verbalized understanding.
--- NOTE | 2020-04-01 20:00 | NUR ---
Assessment complete. Patient is alert and oriented with no complaints of pain. Nonpitting edema is present in her left lower extremity, due to an ankle fracture. Dressing is CDI but will be changed this shift per patient request. Left upper arm fistula is bulging but has palpable thrill and audible bruit. Generalized forearm bruising is noted.
--- NOTE | 2020-04-01 20:40 | NUR ---
Patient alert and oriented. had an episode of chest pain/abdominal pain.patient vitals were within range RN called Dr Esposito to verify if it okay to give another dose of Nitro, because patient had the same episode before shift. RN spoke with Dr Garett Weber nurse. Tia report that Dr Bajwa believe event is not caused by vascular issues. Imdur and metoprolol was ordered. Patient verbalize feeling better. She ambulate to the chair okay. Patient type and screened for blood tranfusion. Patient signed consent. report given to night nurseVero.
--- NOTE | 2020-04-01 21:08 | NUR ---
1 unit blood transfusion initiated at this time. Patient educated about symptoms of tranfusion reaction. Remained by patient's bedside for first 15 minutes of transfusion. Vital signs stable. Will continue to monitor.
[2020-04-02] VITALS (12 sets, daily range): BP systolic 124–168; BP diastolic 41–53; PULSE 58–65; TEMP 97.4–98.7
[2020-04-02 11:15] LABS: BASO % 0.3 % (0.0-2.0); EOS # 0.2 (0.0-0.7); EOS % 1.6 % (0-4.0); GRAN # 6.9 (1.4-6.5); GRAN % 74.7 % (42.2-75.2); LYMPH # 1.4 (1.2-3.4); LYMPH % 15.2 % (20.0-51.0); MEAN CORPUSCULAR HGB CONC 33 g/dl (33.0-37.0); MEAN PLATELET VOLUME 10.6 fl (7.4-10.4); MONO # 0.7 (0.1-0.6); MONO % 7.9 % (1.7-9.3); PLATELET COUNT 130 K/mm3 (130-400); RED BLOOD COUNT 3.25 M/mm3 (4.10-5.30); REDCELL DISTRIBUTION WIDTH-CV 16.7 % (11.5-14.5)
[2020-04-02 11:26] LABS: ALBUMIN 3.7 gm/dL (3.5-5.0); CALCIUM 9.4 mg/dL (8.4-10.2); CREATININE, serum 5.32 (0.52-1.25); PHOSPHOROUS 5.5 mg/dL (2.5-4.5); POTASSIUM 4.9 mmol/L (3.4-5.0)
[2020-04-02 12:00] LABS: HEMATOCRIT 29.9 % (37.0-47.0); MEAN CORPUSCULAR HEMOGLOBIN 30 pg (27.0-31.0)
[2020-04-02 12:02] LABS: HEMOGLOBIN 9.9 g/dl (12.5-16.0); MEAN CELL VOLUME 92 fl (80.0-100.0)
--- NOTE | 2020-04-02 15:07 | NUR ---
The patient is to discharge back home with her son today, 04/02, with home health services for group home/PT/OT from [facility]. SW notified and faxed d/c orders to Bella at [facility]. No additional needs at this time.
--- NOTE | 2020-04-02 17:07 | NUR ---
Patient alert and oriented. denies any pain. Patient had dialysis today. Dialysis nurse report that 1.1L fluid was removed and patient tolerate well. dialysis nurse also report that patient KARL fistula bleed post dialysis but stopped after 20minutes. This RN monitor patient's dialysis fistula after dialysis. there was no further bleeding. Patient discharge home with homehealth order. followup appt appointments and dialysis after discharge was discussed with patient. INT discontinued. Patient discharged home with Son.
== END 2020-04-02 17:10 | disposition home or self-care (01) | DRG 248 ==
LOC: INPTSU 14:55 → MEDICAL 14:59
PROVIDERS: ADMIT Internal Medicine Nephrology
PROC: 5A1D70Z Performance of Urinary Filtration, Intermittent, Less than 6 Hours Per Day (ICD-10-PCS; principal; 2020-03-30)
PROC: 4A023N8 Measurement of Cardiac Sampling and Pressure, Bilateral, Percutaneous Approach (ICD-10-PCS; 2020-03-30)
PROC: B2111ZZ Fluoroscopy of Multiple Coronary Arteries using Low Osmolar Contrast (ICD-10-PCS; 2020-03-30)
PROC: 02713EZ Dilation of Coronary Artery, Two Arteries with Two Intraluminal Devices, Percutaneous Approach (ICD-10-PCS; 2020-03-31)
DX: I21.4 Non-ST elevation (NSTEMI) myocardial infarction (principal); N18.6 End stage renal disease; E46 Unspecified protein-calorie malnutrition; I12.0 Hypertensive chronic kidney disease with stage 5 chronic kidney disease or end stage renal disease; D63.1 Anemia in chronic kidney disease; E11.22 Type 2 diabetes mellitus with diabetic chronic kidney disease; M25.572 Pain in left ankle and joints of left foot; E21.3 Hyperparathyroidism, unspecified; I48.0 Paroxysmal atrial fibrillation; I44.7 Left bundle-branch block, unspecified; I34.0 Nonrheumatic mitral (valve) insufficiency; E78.5 Hyperlipidemia, unspecified; I25.10 Atherosclerotic heart disease of native coronary artery without angina pectoris; Z95.0 Presence of cardiac pacemaker
CPT/HCPCS: J1644; J7030; P9016; Q9967

== ENCOUNTER 2020-11-18 14:25 | Outpatient (CLI) | payer OTHER, BC ==
[2006-11-06 12:54] VITALS: BP 122/62
[2020-11-18] VITALS (10 sets, daily range): BP systolic 131–152; BP diastolic 54–72; PULSE 70–78; TEMP 98–98.5
[~2020-11-18 14:25] MED LIST changes: +FOLIC ACID0.4 MG PO
== END 2020-11-18 20:51 ==
LOC: EUO 14:25
DX: R19.5 Other fecal abnormalities (principal)
CPT/HCPCS: J7050; P9016

== ENCOUNTER 2021-06-07 08:38 | Observation (INO) | payer MEDICARE, BC ==
[~2021-06-07] VITALS: Ht 167.6 cm; Wt 76.8 kg
[2021-06-07 09:22] LABS: BASO % 0.3 % (0.0-2.0); EOS # 0.1 K/mm3 (0.0-0.7); EOS % 1.1 % (0-4.0); GRAN # 6.3 K/mm3 (1.4-6.5); GRAN % 79.2 % (42.2-75.2); LYMPH # 0.9 K/mm3 (1.2-3.4); LYMPH % 11.2 % (20.0-51.0); MEAN CELL VOLUME 98 fl (80.0-100.0); MEAN CORPUSCULAR HGB CONC 32 g/dl (33.0-37.0); MEAN PLATELET VOLUME 11.2 fl (7.4-10.4); MONO # 0.6 K/mm3 (0.1-0.6); MONO % 7.9 % (1.7-9.3); PLATELET COUNT 126 K/mm3 (130-400); RED BLOOD COUNT 3.16 M/mm3 (4.10-5.30); REDCELL DISTRIBUTION WIDTH-CV 15.7 % (11.5-14.5)
[2021-06-07 09:28] LABS: HEMATOCRIT 30.8 % (37.0-47.0); HEMOGLOBIN 9.9 g/dl (12.5-16.0); MEAN CORPUSCULAR HEMOGLOBIN 31 pg (27.0-31.0)
[2021-06-07 09:36] LABS: ALBUMIN 3.4 gm/dL (3.4-4.8); BILIRUBIN,TOTAL 0.6 mg/dL (0.2-1.2); CALCIUM 9.2 mg/dL (8.4-10.2); CREATININE, serum 5.63 mg/dL (0.57-1.11); POTASSIUM 4.6 mmol/L (3.5-4.5); TOTAL PROTEIN 5.9 gm/dL (6.2-8.1)
[2021-06-07 09:41] LABS: TROPONIN-I 0.031 ng/mL (0.00-0.033)
[2021-06-07 14:11] VITALS: BP 140/52; PULSE 66; TEMP 97.7
[2021-06-07] MEDS ORDERED: PHOS LO PO (14:14)
[2021-06-07] MEDS ORDERED: THERAGRAN M1 UDTAB PO (14:17)
[2021-06-07] MEDS ORDERED: TOPROL XL 25MG25 MG PO (14:19)
[2021-06-07] MEDS ORDERED: LEXAPRO 5MG5 MG PO (14:20)
[2021-06-07] MEDS ORDERED: ATIVAN 0.50.5 MG/TAB PO (14:21)
[2021-06-07] MEDS ORDERED: MOTRIN 400400 MG/TAB PO (14:22)
[2021-06-07] MEDS ORDERED: ISOSORBIDE MON120 MG PO (14:40)
--- NOTE | 2021-06-07 15:25 | NUR ---
Patient admitted to room 327. Admission paperwork completed. Med rec completed to the best of my ability with list. Assessment completed. Nydia with [facility] rounded. Alejandrina with nephrology called for consult. Will monitor.
[2021-06-07 15:46] VITALS: BP 157/51; PULSE 65; TEMP 97.9
--- NOTE | 2021-06-07 16:44 | NUR ---
Dr.Bedros mirza. Update given. Plan of care reviewed. Patient ordered dinner. Will monitor.
[2021-06-07 19:35] VITALS: BP 143/48; PULSE 66; TEMP 97.3
--- NOTE | 2021-06-07 20:46 | NUR ---
PT IN BED. DENIES PAIN TO RT LEG. HAS IMMOBILIZER ON. TAKES HS MEDS WITHOUT DIFFICULTY. ASSISTED TO BSC WITH 2 ASSIST AND GAIT BELT, NO VOID OR BM, BACK TO BED. IS NWB TO RT LEG. IS A DIALYSIS PT, HAS BULGING LEFT UPPER ARM FISTULA. IS ALERT AND ORIENTED X4. SL TO RAC, FLUSHES WELL. WILL MONITOR FOR CHANGES.
[2021-06-07 23:23] VITALS: BP 149/50; PULSE 71; TEMP 97.8
--- NOTE | 2021-06-07 23:30 | NUR ---
PT ASSISTED WITH BEDPAN FOR BM. NO SUCCESS, ONLY FLATUS. BEDPAN REMOVED.
[2021-06-08 02:54] VITALS: BP 153/49; PULSE 71; TEMP 97.4
--- NOTE | 2021-06-08 03:00 | NUR ---
MEDICATED WITH NORCO 5/325MG AND ATIVAN 0.5MG PO FOR RT LEG PAIN. ATTEMPTED BEDPAN FOR BM, NO SUCCESS.
[2021-06-08 06:46] LABS: BASO % 0.5 % (0.0-2.0); EOS # 0.2 K/mm3 (0.0-0.7); EOS % 2.4 % (0-4.0); GRAN # 4.3 K/mm3 (1.4-6.5); GRAN % 67.7 % (42.2-75.2); LYMPH # 1.1 K/mm3 (1.2-3.4); LYMPH % 17.4 % (20.0-51.0); MEAN CELL VOLUME 97 fl (80.0-100.0); MEAN CORPUSCULAR HGB CONC 32 g/dl (33.0-37.0); MEAN PLATELET VOLUME 11.3 fl (7.4-10.4); MONO # 0.7 K/mm3 (0.1-0.6); MONO % 11.7 % (1.7-9.3); PLATELET COUNT 113 K/mm3 (130-400); RED BLOOD COUNT 3.03 M/mm3 (4.10-5.30); REDCELL DISTRIBUTION WIDTH-CV 15.7 % (11.5-14.5)
[2021-06-08 06:49] LABS: HEMATOCRIT 29.3 % (37.0-47.0); HEMOGLOBIN 9.3 g/dl (12.5-16.0); MEAN CORPUSCULAR HEMOGLOBIN 31 pg (27.0-31.0)
[2021-06-08 07:00] VITALS: BP 131/56; PULSE 72; TEMP 97.6
[2021-06-08 07:07] LABS: CALCIUM 9.6 mg/dL (8.4-10.2); CREATININE, serum 6.37 mg/dL (0.57-1.11); POTASSIUM 4.4 mmol/L (3.5-4.5)
--- NOTE | 2021-06-08 10:30 | NUR ---
Patient alert and oriented, answers questions appropriately. See assessment. RLE with 1+ edema noted, brace in place, pulses palpable. NWB to RLE. SETH hose and SCDs in place. Activity and post op exercises reviewed with patient. No c/o at this time.
--- NOTE | 2021-06-08 10:49 | NUR ---
Keara Cruz notified of palliative care consult.
[2021-06-08 12:00] VITALS: BP 130/52; PULSE 70; TEMP 97.7
--- NOTE | 2021-06-08 14:13 | NUR ---
I met with Naty during dialysis today to talk about her goals of care. Naty expresses the desire to be able to take care of herself and not be a burden. She is dealing with pain from her fracture and generalized arthritis which is difficult for her to handle. She has talked with her dialysis doctors about hospice and going off of dialysis in the past. She has seen others choose hospice services and not have to deal with the ongoing challenges of their illness. I spoke with her daughter in law Yumiko who reports that the family has heard this before from her and that she will most likely choose to continue with dialysis when the time comes but that she "goes through this everytime she gets injured". I will talk with pt again tomorrow.
--- NOTE | 2021-06-08 15:07 | NUR ---
Patient tolerated HD tx with 950 mL of fluid removed. Next planned Hd tx planned on 06/09/21 @ 0800.
[2021-06-08 15:30] VITALS: BP 145/60; PULSE 75; TEMP 97.5
--- NOTE | 2021-06-08 16:25 | NUR ---
[place] Ophthalmologist met with patient to discuss discharge planning. Patient lives in [place] with her son, Ismael (ph#[phone]) and daughter in law, Yumiko (ph#[phone]). Patient sees Dr. Rouse for primary care and currently obtains medications from [facility], however she is going to switch to [facility]. Patient has a walker at home and stated she was normally independent with ADLS until recently. Patient reports she has had a couple falls at home. Patient reports she has Advance Directives that designate her sons. SW discussed PT recommendation for post acute rehab. Patient states she does not feel she can tolerate rehab and states she just wants to be "done". SW asked what she meant by "done" and patient advised she meant stopping dialysis and going to hospice. Patient states dialysis has been hard on her and she isn't sure with this recent injury how she will even be able to get there as she normally drives herself. Patient states her normal chair time is MWF at 1000. SW contacted Hospitalist and requested palliative consult. MERRICK and RN-Emeli PULIDO met with patient and reviewed YING form as patient was downgraded to observation status. Patient provided signaure on the form and was provided a copy. Original was put in the chart. MERRICK collaborated with Keara WOLF who advised she spoke with patient and her daughter in law, Yumiko who advised patient goes back and forth between hospice and continued care. MERRICK followed up with Yumiko who advised they have been through this with patient before and that they would be supportive of hospice, but patient always changes her mind at the last minute. Yumiko is in agreement that patient needs rehab. MERRICK explained that patient is observation status and a SNF stay would be private pay. Yumiko states they will not be able to afford this. MERRCIK discussed sending referrals to [facility] and [facility]. Yumiko is agreeable to this. MERRICK faxed referral to [facility] then contacted MAKI Enrique Director to give referral. MERRICK also contacted Eduarda at [facility] and faxed referral to inquire if they can use the COVID waiver for a skilled stay. Eduarda reports her team reviewed the clinicals and would not be able to use the waiver due to patient's rehab potential with her non weight bearing status. MERRICK received a call from Rachana at [facility] who advised their physician feels patient needs SNF so they will not be able to accept. Discharge Plan: [facility]
[2021-06-08 19:55] VITALS: BP 132/57; PULSE 59; TEMP 98.2
--- NOTE | 2021-06-08 20:00 | NUR ---
PT CALLS OUT FOR PAIN MEDS, DISCUSSED WITH PT IT WAS TOO EARLY. SHE VERBALIZES UNDERSTANDING.
--- NOTE | 2021-06-08 22:12 | NUR ---
PT IN BED, IS ALERT AND ORIENTED X3, THOUGHT SHE WAS AT HOME. HS MED GIVEN INCLUDING NORCO FOR RT LEG PAIN. ASSISTED TO BEDPAN TO VOID. PT REPORTS "GOOD" BM EARLIER THIS EVENING. HAS RT IMMOBILIZER ON, MILD EDEMA NOTED OF RT LEG. REMOVED LEFT SETH HOSE D/T HEEL DISCOMFORT, SKIN INTACT. HAS RAC SL FLUSHES WELL. BULGING AV FISTULA WITH GAUZE DRSG ON. NO URINE WHILE ON BEDPAN.
[2021-06-09] VITALS (7 sets, daily range): BP systolic 122–164; BP diastolic 41–68; PULSE 63–84; TEMP 97.4–98.3
--- NOTE | 2021-06-09 06:30 | NUR ---
Pt takes scheduled morning meds without problem. Has had a restful night.
--- NOTE | 2021-06-09 06:45 | NUR ---
appears to be sleeping, bedside shift report received from LUCIANO Lopez
[2021-06-09 08:12] LABS: BASO % 0.3 % (0.0-2.0); EOS # 0.2 K/mm3 (0.0-0.7); GRAN # 3.9 K/mm3 (1.4-6.5); GRAN % 65.1 % (42.2-75.2); LYMPH # 0.9 K/mm3 (1.2-3.4); LYMPH % 15.5 % (20.0-51.0); MEAN CELL VOLUME 100 fl (80.0-100.0); MEAN CORPUSCULAR HGB CONC 32 g/dl (33.0-37.0); MEAN PLATELET VOLUME 11.5 fl (7.4-10.4); MONO % 15.9 % (1.7-9.3); PLATELET COUNT 103 K/mm3 (130-400); RED BLOOD COUNT 2.84 M/mm3 (4.10-5.30); REDCELL DISTRIBUTION WIDTH-CV 15.9 % (11.5-14.5)
[2021-06-09 08:13] LABS: HEMATOCRIT 28.5 % (37.0-47.0); MEAN CORPUSCULAR HEMOGLOBIN 32 pg (27-31)
--- NOTE | 2021-06-09 08:15 | NUR ---
sitting up in bed eating breakfast, denies needs at this time
[2021-06-09 08:17] LABS: CALCIUM 9.7 mg/dL (8.4-10.2); CREATININE, serum 4.99 mg/dL (0.57-1.11); POTASSIUM 4.3 mmol/L (3.5-4.5)
--- NOTE | 2021-06-09 09:00 | NUR ---
medical supply technician came to desk state she was in seeing the patient and she was c/o having difficulty breathing and needed to stand up, entered room and patient was breathing shallow and slightly fast, encouraged her to slow her breathing down, she states that she feels it up in her chest and thinks it is air that she needs to pass, she does want to stand up as that she states usually helps, encouraged her to slow her breathing and placed on O2 at 1L/NC for comfort, she does state that sometimes they put her on O2 during dialysis, after standing for a couple of minutes, therapy also came in and we assisted her over into the recliner, she states she was feeling better and breathing is now normal, full assessment completed, see interventions for further info, O2 sat on 1L is 98%
--- NOTE | 2021-06-09 09:30 | NUR ---
remains in chair and states she is continuing to feel better, [facility] is in place and remained in place during transfer
--- NOTE | 2021-06-09 09:31 | NUR ---
Initial visit; Patient in tears and very uncomfortable stating she can't breathe and that her body feels uncomfortable. Instructor Flying offered prayer and reported her symptoms to her nurse who followed up with patient.
--- NOTE | 2021-06-09 09:43 | NUR ---
Pt tells me this morning that she has talked with her family and can see some progress being made with her mobility so she is willing to go to rehab for a period of time to regain her strength and then will re-evaluate after [place] as to what she wants to do. She does not want to go live in a assisted but is willing to go for a short stay of rehab. She will reconsider her dialysis after this time but currently is planning to continue dialysis.
--- NOTE | 2021-06-09 09:58 | NUR ---
O2 sat on room air is 94%
--- NOTE | 2021-06-09 11:04 | NUR ---
remains up in chair, occupational therapy in to work with her
--- NOTE | 2021-06-09 12:15 | NUR ---
remains up in chair, will assist with ordering lunch
--- NOTE | 2021-06-09 13:04 | NUR ---
had lunch and tolerated well, assisted back to bed with 2 assist
--- NOTE | 2021-06-09 16:07 | NUR ---
Clinical Editor spoke with Iva, [facility] Director declined referral. SW met with patient and patient's son, Ismael to provide update. MERRICK advised that patient remains observation status meaning that a stay at a correction facility would be private pay. Ismael advised they absolutely cannot afford this. SW inquired about a Medicaid application and patient advised she was recently [facility] that she [facility] not qualify as she owns land. Ismael confirms this. MERRICK advised that the options they currently have are private paying for a alf or patient returning home. Isamel states they will take patient home with Home [facility] services from [facility]. SW also provided information about private duty services. MERRICK contacted Yadira at [facility] and faxed referral.
--- NOTE | 2021-06-09 16:30 | NUR ---
remains resting in bed visiting with her son, placed on bedpan and voids qs
--- NOTE | 2021-06-09 18:32 | NUR ---
resting in bed, c/o pain to right leg and also bloating feeling, medicated with norco 5mg 1 tab and Ivana LEOS notified for something for bloating
--- NOTE | 2021-06-09 19:01 | NUR ---
bedside shift report given to LUCIANO Chapa
[2021-06-10 03:27] VITALS: BP 142/60; PULSE 79; TEMP 98.5
--- NOTE | 2021-06-10 08:20 | NUR ---
Patient to dialysis per bed at this time.
[2021-06-10] MEDS ORDERED: NORCO 325 MG-51 TAB PO ×2 (08:42→10:55)
[2021-06-10 08:52] LABS: BASO % 0.3 % (0.0-2.0); EOS # 0.1 K/mm3 (0.0-0.7); EOS % 1.6 % (0.0-4.0); GRAN # 5.4 K/mm3 (1.4-6.5); GRAN % 76.5 % (42.2-75.2); HEMATOCRIT 25.2 % (37.0-47.0); HEMOGLOBIN 8.2 g/dl (12.5-16.0); LYMPH # 0.9 K/mm3 (1.2-3.4); LYMPH % 12.7 % (20.0-51.0); MEAN CELL VOLUME 96 fl (80.0-100.0); MEAN CORPUSCULAR HEMOGLOBIN 31 pg (27-31); MEAN CORPUSCULAR HGB CONC 33 g/dl (33.0-37.0); MEAN PLATELET VOLUME 11.2 fl (7.4-10.4); MONO # 0.6 K/mm3 (0.1-0.6); MONO % 8.6 % (1.7-9.3); PLATELET COUNT 118 K/mm3 (130-400); RED BLOOD COUNT 2.62 M/mm3 (4.10-5.30); REDCELL DISTRIBUTION WIDTH-CV 15.2 % (11.5-14.5)
[2021-06-10 09:02] LABS: ALBUMIN 2.8 gm/dL (3.4-4.8); CALCIUM 8.9 mg/dL (8.4-10.2); CREATININE, serum 5.97 mg/dL (0.57-1.11); PHOSPHOROUS 4.7 mg/dL (2.3-4.7); POTASSIUM 4.7 mmol/L (3.5-4.5)
--- NOTE | 2021-06-10 10:51 | NUR ---
Patient alert and oriented, answers questions appropriately. See assessment. RLE with 1+ edema noted, pulses palpable, sensation intact, no c/o numbness or tingling. Brace in place to RLE, NWB. No c/o at this time.
[2021-06-10 11:36] VITALS: BP 138/56; PULSE 63; TEMP 97.8
[2021-06-10 12:00] VITALS: BP 141/49; PULSE 64; TEMP 97.5
--- NOTE | 2021-06-10 12:05 | NUR ---
Returns from dialysis.
--- NOTE | 2021-06-10 13:30 | NUR ---
Patient up to commode, partial bath completed, dressing in street clothes per patients request. Transfered to chair from commode. Brace remains in place to [facility].
--- NOTE | 2021-06-10 14:18 | NUR ---
Laboratory Veterinarian followed up with patient in dialysis to review discharge plan. SW again reviewed patient's options of either returning home with home health services or private paying at a care home. Patient states she does not want to go to a care home. Patient advised she is worried about her son and daughter in law making arrangements to pick her up today. SW advised she would follow up. MERRICK contacted Yadira at [facility] and faxed discharge orders. Yadira advised they will accept referral and have nursing out to see patient tomorrow (06/11/21). Yadira advised PT will visit patient on Monday (06/12/21) and OT will be out either Monday or Monday. MERRICK attempted to contact patient's son, Ismael but the call was unable to go through. MERRICK contacted Yumiko who advised that due to Ismael's work location, sometimes calls cannot go through. MERRICK advised Yumiko that patient would be discharged today with [facility] and provided the above dates for visits. Yumiko is relieved that [facility] will be providing services. Yumiko advised that she will likely be up to get patient after she gets off work this afternoon. MERRICK was contacted by LUCIANO Vogel at Dr. Rouse's office. MERRICK provided update on discharge plan and options that were presented to patient. Discharge Plan: Home with [facility]
--- NOTE | 2021-06-10 17:24 | NUR ---
Discharge instructions reviewed with patient and family, verbalized understanding. Discharged via wheelchair to auto/home with family at 1720.
== END 2021-06-10 17:20 | disposition home health service (06) ==
LOC: COL.ER 08:38 → SURG 12:32
PROVIDERS: Emergency Medicine; Internal Medicine Nephrology; Physician Assistant; ADMIT Student in an Organized Health Care Education/Training Program
DX: S82.101A Unspecified fracture of upper end of right tibia, initial encounter for closed fracture (principal); S82.141A Displaced bicondylar fracture of right tibia, initial encounter for closed fracture; W22.03XA Walked into furniture, initial encounter; Y93.01 Activity, walking, marching and hiking; Y92.89 Other specified places as the place of occurrence of the external cause; E11.22 Type 2 diabetes mellitus with diabetic chronic kidney disease; I12.0 Hypertensive chronic kidney disease with stage 5 chronic kidney disease or end stage renal disease; N18.6 End stage renal disease; D63.1 Anemia in chronic kidney disease; Z20.822 Contact with and (suspected) exposure to COVID-19; Z99.2 Dependence on renal dialysis; E78.5 Hyperlipidemia, unspecified; I48.0 Paroxysmal atrial fibrillation; F32.A Depression, unspecified; E87.5 Hyperkalemia; I25.2 Old myocardial infarction; I25.10 Atherosclerotic heart disease of native coronary artery without angina pectoris; M19.90 Unspecified osteoarthritis, unspecified site; I34.0 Nonrheumatic mitral (valve) insufficiency; N25.81 Secondary hyperparathyroidism of renal origin; Z95.0 Presence of cardiac pacemaker; Z79.899 Other long term (current) drug therapy; Z95.5 Presence of coronary angioplasty implant and graft
CPT/HCPCS: OP; 99223-AI; 99232-AI; A9284; G0378; J7030; L1830; L1846

== ENCOUNTER 2021-10-28 10:19 | Observation (INO) | payer MEDICARE, BC ==
[2021-10-28] VITALS (26 sets, daily range): BP systolic 98–109; BP diastolic 39–51; PULSE 69–84; TEMP 95
[~2021-10-28] VITALS: Ht 167.6 cm; Wt 66.8 kg
[~2021-10-28 10:19] MED LIST changes: +ISOSORBIDE MON120 MG PO; +MOTRIN 400400 MG/TAB PO; +PHOS LO PO
[2021-10-28 10:45] LABS: ARTERIAL BLD GAS O2 SATURATION 98.8 % (92-100); ARTERIAL BLD GAS TCO2 CT 17.7; ARTERIAL BLOOD GAS BASE EXCESS -5.8 (-2-2); ARTERIAL BLOOD GAS pH 7.48 (7.35-7.45)
[2021-10-28 10:46] LABS: ARTERIAL BLOOD GAS PCO2 23.4 mmHg (35-45); ARTERIAL BLOOD GAS PO2 203.8 mmHg (80-100)
[2021-10-28 10:50] LABS: BASO % 0.2 % (0.0-2.0); EOS % 0.1 % (0.0-4.0); GRAN # 7.8 K/mm3 (1.4-6.5); GRAN % 85.9 % (42.2-75.2); LYMPH # 0.9 K/mm3 (1.2-3.4); MEAN CELL VOLUME 99 fl (80.0-100.0); MEAN CORPUSCULAR HGB CONC 31 g/dl (33.0-37.0); MEAN PLATELET VOLUME 12.1 fl (7.4-10.4); MONO # 0.3 K/mm3 (0.1-0.6); MONO % 3.2 % (1.7-9.3); PLATELET COUNT 132 K/mm3 (130-400); RED BLOOD COUNT 2.28 M/mm3 (4.10-5.30); REDCELL DISTRIBUTION WIDTH-CV 16.8 % (11.5-14.5)
[2021-10-28 10:53] LABS: HEMATOCRIT 22.6 % (37.0-47.0); MEAN CORPUSCULAR HEMOGLOBIN 31 pg (27-31)
[2021-10-28 10:58] LABS: INR 1.1 (0.8-3.0); PROTHROMBIN TIME 12.3 SECONDS (9.7-12.8)
[2021-10-28 11:04] LABS: ALBUMIN 3.8 gm/dL (3.4-4.8); CALCIUM 9.2 mg/dL (8.4-10.2); CREATININE, serum 3.75 mg/dL (0.57-1.11); MAGNESIUM 1.8 mg/dL (1.6-2.6); POTASSIUM 4.7 mmol/L (3.5-4.5); TOTAL PROTEIN 6.3 gm/dL (6.2-8.1)
[2021-10-28 11:11] LABS: TROPONIN-I 0.047 ng/mL (0.00-0.033)
[2021-10-28 11:13] LABS: BILIRUBIN,TOTAL 0.8 mg/dL (0.2-1.2)
[2021-10-28 12:20] LABS: COLLECTION METHOD CATHETER
[2021-10-28 12:29] LABS: MUCOUS Present (NOT PRESENT); PH 6 (5-8); SQUAMOUS EPITHELIAL 0-2 /hpf (0-10); URINE APPEARANCE Hazy (CLEAR/HAZY); URINE BACTERIA None Seen /hpf (NONE SEEN); URINE BILIRUBIN Negative (NEGATIVE); URINE BLOOD 1+ (NEGATIVE); URINE COLOR Yellow (YELLOW); URINE GLUCOSE Negative (NEGATIVE); URINE KETONE Negative (NEGATIVE); URINE LEUKOCYTE ESTERASE Negative (NEGATIVE); URINE NITRATE Negative (NEGATIVE); URINE PROTEIN(semi-quant) 2+ (NEGATIVE); URINE UROBILINOGEN Negative (NEGATIVE)
--- NOTE | 2021-10-28 14:57 | NUR ---
motion picture set up worker and SW student respond to consult for patient in the ER that she was wishing to go comfort care. Met patient at bedside. Patient verbalized a strong desire to be comfortable verbalizing that she does not want any antibiotics to treat her sepsis and is "done" with dialysis. Patient goes on to state that her daughter at a young age from cancer and she watched what she went though and she watched her "suffer". Patient states that she currently lives at home with her son Ismael and his Yumiko. She has another son named Adrian ([phone]). Patient verbalizes a desire to go to [facility]. Phone call made to Guy at the [facility] and referral information faxed. Collaborated with the physician who states he is going to call the patients son.
--- NOTE | 2021-10-28 16:39 | NUR ---
Guy with [facility] states that she would be able to accept this patient for an admit tomorrow as long as she got approval from her PCP. Patients DPOA-HC sent to Guy. Got in contact with the patients son Adrian to let him know that the physician was trying to get ahold of him. Collaborated with the hospitalist team who states that they were able to get ahold of her son Adrian and that is in agreement with the POC. Notified team with the above information from Guy.
--- NOTE | 2021-10-28 18:07 | NUR ---
Patient admitted to floor as comfort care; Tentative plan is to DC to [facility] tomorrow. This RN entered the room to complete the admission assessment. Before this RN could do so, the patient's son stopped by the desk and stated, "This has happened everytime she has been admitted to the hospital. She starts to feel bad, and decides she is done with dialysis and dealing with everything. She decides to go hospice, and then as soon as it is time to go, she changes her mind because she doesn't like how sick she feels." This RN asked the son if the patient ever has suicidal ideations, and the son stated "We hide the tylenol and ibuprofen because she has made comments in the past.". This RN then did the admission assesment, and patient answered "yes" to having thoughts of suicide and having a plan. Patient did not tell this RN her plan. Dr. Ulrich was then notified of this, as 15min suicide checks automatically populated d/t her answers. Dr. Ulrich stated, "There is nothing I can do about this. She has already made her decision to be comfort care. Call psych, if they can see her tonight, great, if not I'll see her tomorrow morning. Just give her some ativan and let her get a good night's sleep." During the admission, patient answered all orientation questions properly, making her A&Ox4. When this RN asked the patient if she understood the plan tomorrow, she stated "No? Whats going on tomorrow? Do my sons know?". Room made safe following suicide precautions.
--- NOTE | 2021-10-28 18:37 | NUR ---
Dose of IV ativan given as patient was very fidgety and picking at her skin. Patient has now denied having a plan and states "I am just tired. I cannot do any of the things I used to do. I can no longer garden, shop, walk. I'm just lonely and tired. Dialysis takes all of my energy and I am just tired and don't want to continue wasting 3days of my week."
--- NOTE | 2021-10-28 20:30 | NUR ---
Initial shift assessment done- awake, somewhat drowsy, states does not have any pain since some morphine was given in ER, no o2 is on-pt states she does not want any at this time- 02 sats 88-90% RA- she states I am always SOB and o2 doesnt help--pt is on comfort care at this time- [facility], she is oriented at this time- answering all questions appropriately- has a Carranza with just scant amounts urine, Is on 15 min suicide checks due to questions she answered on initial assessment with previous nurse- pt resting quietly in bed- no agitation or requests, did eat just a few bites of supper. bed alarm is on- close to nsg station.
[2021-10-29 00:07] VITALS: BP 98/39; PULSE 84
[2021-10-29 00:22] VITALS: BP 98/39; PULSE 84
--- NOTE | 2021-10-29 05:49 | NUR ---
Quiet night, has been resting on and off tonight- did have black stool per BSC x1 last night, did agree to o2 during the night , o2 at 3L/nc - o2 sats 93% on the o2, Carranza with less than 25cc for the shift. Denies need for any pain meds
[2021-10-29] MEDS ORDERED: ROXANOL 20MG20 MG/ML PO (10:28)
[2021-10-29] MEDS ORDERED: LORAINT PO (10:32)
[2021-10-29] MEDS ORDERED: DULCOLAX S10 MG/SUPP RC (10:33)
[2021-10-29] MEDS ORDERED: ZOFRAN ODT4 MG PO (10:34)
[2021-10-29] MEDS ORDERED: PHENERGAN12.5 MG/SU RC (10:34)
[2021-10-29] MEDS ORDERED: BLUE-EMU LIDOC1 EACH TP (10:35)
[2021-10-29] MEDS ORDERED: TRANSDERM-0.5 MG/21 TD (10:35)
--- NOTE | 2021-10-29 10:52 | NUR ---
Patient no longer on Q15min suicide checks. Patient spoke w/ palliative RN and made her decisions very clear. Patient will be transferring to hospice at 1330. Patient at the bedside visiting w/ patient.
--- NOTE | 2021-10-29 10:53 | NUR ---
Met with patient, her son Adrian, and Avelina RN at bedside. We discussed what hospice is and patient decision to stop dialysis. Naty was very clear and able to describe what her choices meant and how she has been declining and getting weaker and weaker and that she doesn't feel she is able to bounce back anymore. She states that several years ago she laz up a living will for her family and that she is ready to focus on comfort and no longer received dialysis. Also attended rounding with the hospitalist team-patient was again very clear in verbalizing her wishes for hospice. Brother and [id number] stepped in as well during rounds. Notified SW that hospitalist team felt patient was appropriate and of sound mind in her decision. Plan for transfer to [facility] via [facility] around 1300. Notified rest of care team as well.
--- NOTE | 2021-10-29 13:13 | NUR ---
Patient discharged to [facility]. IV removed by this RN. EMS picked the patient up. This RN assisted w/ transferring the patient from the bed to the EMS cot. Report called to RN at [facility].
--- NOTE | 2021-10-29 14:41 | NUR ---
Sba Business Development Officer collaborated with the Hospitalist team as patient was put on suicide precautions overnight. Palliative consult placed and RN, Danay met with patient to discuss goals of care. Patient is clear that she wants hospice and to discharge to the [facility]. Hospitalist rounded and felt patient was able to make her own medical decisions and in support of hospice. MERRICK contacted Guy at [facility] and provide above update as well as updates from overnight. Guy advised they can still accept today at 1300. MERRICK contacted [facility] and set transport time for 1300. MERRICK met with patient and family to provide transport time. All are in agreement. MERRICK placed completed EMS forms on chart. MERRICK faxed discharge orders and negative covid results to [facility]. Discharge Plan: [facility]
== END 2021-10-29 13:10 | disposition hospice, inpatient (51) ==
LOC: COL.ER 10:19 → MEDICAL 14:58
PROVIDERS: Emergency Medicine
DX: R06.02 Shortness of breath (principal); I95.9 Hypotension, unspecified; I13.2 Hypertensive heart and chronic kidney disease with heart failure and with stage 5 chronic kidney disease, or end stage renal disease; N18.6 End stage renal disease; Z99.2 Dependence on renal dialysis; E11.22 Type 2 diabetes mellitus with diabetic chronic kidney disease; I50.20 Unspecified systolic (congestive) heart failure; G93.40 Encephalopathy, unspecified; E78.2 Mixed hyperlipidemia; T68.XXXA Hypothermia, initial encounter; E87.5 Hyperkalemia; E21.2 Other hyperparathyroidism; I34.0 Nonrheumatic mitral (valve) insufficiency; I48.0 Paroxysmal atrial fibrillation; Z95.0 Presence of cardiac pacemaker; F32.A Depression, unspecified; Z79.899 Other long term (current) drug therapy
CPT/HCPCS: 99239; G0378; J0610; J0692; J2060; J2270; J7120